=== PATIENT | female | born 1940 | race Caucasian/White ===

== ENCOUNTER → 2016-06-12 | Outpatient (CLI) | payer MEDICARE, BC ==
--- NOTE | 2016-06-12 10:33 | ECHOS ---
DATE OF SERVICE: 06/12/2016 AGE: 75Y SEX: F HT: 62 WT: 169 lbs. Protocol Richy: X Others: Stress Echo Stage: 1 Dur. of Exercise: 2:30 *Heart Rate Blood Pressure *Rest: 81 Rest: 105/61 * *Max. Achieved: 145 Maximum BP: 162/65 85% PMHR: 122 100% PMHR: 144 *METS: 3.6 INDICATIONS: Chest pain. MEDICATIONS: Omeprazole, levothyroxine, Advil. CLINICAL INFORMATION: Chest pain, shortness of breath, diabetes, palpitations, and family history of coronary artery disease. Resting ECG shows sinus rhythm, rate of 81 beats per minute, NH interval 0.16, QRS 0.08, normal ST-T Waves. Utilizing a standard Richy protocol, a symptom-limited treadmill test was performed. Patient exercised for total of only 2 minutes and 30 seconds, attained a peak heart of 145 beats per minute, which is approximately 100% of predicted maximal heart rate and with some J-point depressions without any anginal pain but complained of shortness of breath. Patient noted to have flat [address] segment depression in the inferolateral leads in the recovery. In view of very limited exercise, diabetic, age, clinical correlation suggested. May consider doing a trial of sublingual nitroglycerin to see whether symptoms improve. Baseline images show normal thickening and contractility. Postexercise image shows improved contractibility and thickening consistent with normal stress echocardiogram. IMPRESSION: 1. Normal stress echocardiogram. 2. Patient's exercise capacity is very limited, on walked on the treadmill for 2-1/2 minutes, stopped because of shortness of breath, noted to have [address] depression in the inferolateral leads in the recovery, which improved later. Clinical correlation is suggested.
== END | disposition home or self-care (01) ==
LOC: RADNMMAIN 08:55
PROVIDERS: ATTEND Internal Medicine Geriatric Medicine
DX: R94.31 Abnormal electrocardiogram [ECG] [EKG] (principal); R06.02 Shortness of breath; R07.9 Chest pain, unspecified
CPT/HCPCS: 93017; 93350

== ENCOUNTER → 2016-08-07 | Outpatient (CLI) | payer MEDICARE, BC ==
[2016-08-07 16:28] LABS: ALT 36 U/L (9-52); AST 21 U/L (14-36); Alkaline Phosphatase 99 U/L (38-126); Anion Gap 12 mmol/L; Blood Urea Nitrogen 14 mg/dL (7-17); Carbon Dioxide 24 mmol/L (22-30); Chloride 107 mmol/L (98-107); Glucose 95 mg/dL (74-99); Non-African American GFR(MDRD) >60 (>60 ml/min/1.73 sqM); Potassium 4.8 mmol/L (3.5-5.1); Sodium 143 mmol/L (137-145); Total Bilirubin 0.3 mg/dL (0.2-1.3)
--- NOTE | 2016-08-07 17:31 | CT ---
EXAMINATION TYPE: CT angio chest DATE OF EXAM: 08/07/2016 5:18 PM COMPARISON: NONE HISTORY: Shortness of breath on exertion CT DLP: 345.2 mGycm Automated exposure control for dose reduction was used. CONTRAST: CTA scan of the thorax is performed with IV Contrast, patient injected with 100 mL of Omnipaque 350, pulmonary embolism protocol. There are 3-D post processed images.. FINDINGS: The lungs are clear of infiltrate. There is no evidence of a pulmonary mass. There is a large hiatal hernia. Stomach is entirely within the hiatal hernia. Heart size is normal. There is no pericardial e ffusion. There is no pleural effusion. I see no filling defects in the pulmonary arteries. There is n o evidence of aortic aneurysm or dissection. There is no mediastinal adenopathy. There is a 1 cm righ t bronchial lymph node. The bony thorax is intact. IMPRESSION: LARGE HIATAL HERNIA WITH INTRATHORACIC STOMACH. NO EVIDENCE OF PULMONARY EMBOLISM.
== END | disposition home or self-care (01) ==
LOC: LABWHC1 16:00
PROVIDERS: ATTEND Internal Medicine Geriatric Medicine
DX: K44.9 Diaphragmatic hernia without obstruction or gangrene (principal); J90 Pleural effusion, not elsewhere classified; E78.5 Hyperlipidemia, unspecified; E03.9 Hypothyroidism, unspecified
CPT/HCPCS: 85379; 84439; 80053; 84443; 71275; 36415; Q9967

== ENCOUNTER 2016-09-10 18:45 | Observation (INO) | payer MEDICARE, BC ==
[2016-09-10] MEDS ORDERED: SODIUM CHLORIDE 0.9% 1,000 ML IV STA (19:41)
[2016-09-10] MEDS ORDERED: KETOROLAC 30 MG/ML 1 ML VIAL IVP STA ×2 (19:48→20:41)
[2016-09-10 20:00] LABS: Anisocytosis Slight; Basophils % (A) 1 %; CHCM 29.7; Eosinophils # (A) 0.1 k/uL (0-0.7); Eosinophils % (A) 2 %; HCT 34.3 % (34.0-46.0); HGB 10.4 gm/dL (11.4-16.0); Hypochromasia Marked; Luc # (Auto) 0.11; Luc % (Auto) 2; Lymphocytes % (A) 19 %; MCH 21.6 pg (25.0-35.0); MCHC 30.4 g/dL (31.0-37.0); Mean Platelet Volume 7.2; Microcytosis Marked; Monocytes # (A) 0.2 k/uL (0-1.0); Monocytes % (A) 4 %; Neutrophils # (A) 3.7 k/uL (1.3-7.7); Neutrophils % (A) 72 %; RBC 4.83 m/uL (3.80-5.40); RDW 17.6 % (11.5-15.5); WBC 5.2 k/uL (3.8-10.6)
[2016-09-10 20:05] LABS: Appearance,Urine Clear (Clear); Bilirubin,Urine Negative (Negative); Glucose,Urine (UA) Negative (Negative); Ketones,Urine Negative (Negative); Leukocyte Esterase,Urine Moderate (Negative); Mucus,Urine Rare /hpf; Nitrite,Urine Negative (Negative); Particle Count 1196; Protein,Urine Negative (Negative); RBC,Urine 1 /hpf (0-5); Specific Gravity,Urine 1.018 (1.001-1.035); Squamous Epithelial Cell,Urine <1 /hpf (0-4); UA Billing (MACRO vs. MICRO) MICRO; Urobilinogen,Urine <2.0 mg/dL (<2.0); WBC,Urine 2 /hpf (0-5)
[2016-09-10 20:06] LABS: Prothrombin Time 10.6 sec (9.0-12.0)
[2016-09-10 20:07] LABS: ALT 30 U/L (9-52); AST 23 U/L (14-36); Alkaline Phosphatase 85 U/L (38-126); Amylase <30 U/L (30-110); Anion Gap 10 mmol/L; Blood Urea Nitrogen 15 mg/dL (7-17); Calcium 9.8 mg/dL (8.4-10.2); Carbon Dioxide 28 mmol/L (22-30); Chloride 103 mmol/L (98-107); Glucose 97 mg/dL (74-99); Non-African American GFR(MDRD) >60 (>60 ml/min/1.73 sqM); Potassium 4.1 mmol/L (3.5-5.1); Sodium 141 mmol/L (137-145); Total Bilirubin 0.6 mg/dL (0.2-1.3)
[2016-09-10 20:17] LABS: Creatine Kinase 90 U/L (30-135); Partial Thromboplastin Time 21.7 sec (22.0-30.0)
--- NOTE | 2016-09-10 20:23 | XR ---
EXAMINATION TYPE: XR abdomen acute w cxr DATE OF EXAM: 09/10/2016 COMPARISON: NONE HISTORY: Pain TECHNIQUE: Single view of the chest and 2 views of the abdomen are submitted. FINDINGS: Single view of the chest fails demonstrate evidence for acute pulmonary disease. There is no evidence for pneumoperitoneum. Moderately sized fixed hiatal hernia. The bowel gas pattern is unremarkable as there is air throughou t nondilated small and large bowel. No sizeable air fluid levels.No mass effects are seen. Retained contrast within the colon. No unusual calcifications. IMPRESSION: 1. Fixed hiatal hernia.
[2016-09-10 20:30] LABS: Creatine Kinase MB 1.5 ng/mL (0.0-2.4); Troponin I <0.012 ng/mL (0.000-0.034)
--- NOTE | 2016-09-10 20:30 | ED ---
Abdominal Pain HPI - General Source: patient, RN notes reviewed Mode of arrival: ambulatory Limitations: no limitations - History of Present Illness MD Complaint: abdominal pain, other <Rasheed Bull - Last Filed: 09/10/16 20:46> <Maury Da Silva - Last Filed: 09/10/16 22:37> - General Chief Complaint: Abdominal Pain Stated Complaint: NECK AND BACK, SHOULDER BLADE FOLLOWING BARIUM Time Seen by Provider: 09/10/16 19:31 - History of Present Illness Initial Comments: This is a 75-year-old female history of hiatal hernia who is pending a repair of this who had a barium swallow this morning and then later a breakfast. She started developing some crampy lower abdominal pain and also has some radiation up to the left side of her neck and shoulder area. He states it has persisted intermittently since that time has had pain like this before but states it she also has a some shortness of breath with it. She states that the pain is about 5/10 in the abdomen crampy type pain and about 6/10 in the left shoulder area. There is some reproducibility with movement. Also with palpation. She has a cough fevers chills sweats. (Rasheed Bull) - Related Data Home Medications Medication Instructions Recorded Confirmed Levothyroxine Sodium [Synthroid] 100 mcg PO DAILY 03/30/15 09/10/16 Tio/D3/Mag11/Zinc/Data Center Architect/Aamir/Bor 1 tab PO DAILY 09/07/15 09/10/16 [Caltrate 600+D Plus Tablet] Glucosam/Hakan-Msm1/C/Aamir/Bosw 1 tab PO BID 09/07/15 09/10/16 [Glucosamine-Chondroitin Tablet] Multivit-Min/FA/Lycopen/Lutein 1 tab PO DAILY 09/07/15 09/10/16 [Centrum Silver Tablet] Omeprazole [PriLOSEC] 20 mg PO BID 09/07/15 09/10/16 Vit A/Vit C/Vit E/Zinc/Copper 1 cap PO BID 09/07/15 09/10/16 [ICAPS SOFTGEL] Allergies Allergy/AdvReac Type Severity Reaction Status Date / Time propoxyphene HCl Allergy Nausea Verified 09/10/16 19:23 [From Darvon] propoxyphene napsylate Allergy Nausea Verified 09/10/16 19:23 [From Darvocet-N] codeine AdvReac Nausea & Verified 09/10/16 19:23 Vomiting Review of Systems ROS Other: All systems not noted in ROS Statement are negative. <JorgitoRasheed - Last Filed: 09/10/16 20:46> ROS Other: All systems not noted in ROS Statement are negative. <aMury Da Silva - Last Filed: 09/10/16 22:37> ROS Statement: Those systems with pertinent positive or pertinent negative responses have been documented in the HPI. Past Medical History Past Medical History: GERD/Reflux, Osteoarthritis (OA), Thyroid Disorder Additional Past Medical History / Comment(s): hiatal hernia, HEART MURMUR, ROSACEA, LOW THYROID., 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 History of Any Multi-Drug Resistant Organisms: None Reported Past Surgical History: Adenoidectomy, Cholecystectomy, Tonsillectomy Additional Past Surgical History / Comment(s): ovarian cyst; bunionectomies. Past Anesthesia/Blood Transfusion Reactions: No Reported Reaction Past Psychological History: No Psychological Hx Reported Smoking Status: Former smoker Past Alcohol Use History: Occasional Past Drug Use History: None Reported - Past Family History Son(s) Additional Family Medical History / Comment(s): from brain tumor Brother(s) Family Medical History: Coronary Artery Disease (CAD), Diabetes Mellitus, Myocardial Infarction (OR) Additional Family Medical History / Comment(s): Patient has 2 brothers and one has coronary artery disease, first myocardial infarction at age 43 and is currently 77 years of age. Second brother has history of diabetes. Daughter(s) Family Medical History: No Reported History Additional Family Medical History / Comment(s): . Father Family Medical History: Cancer Additional Family Medical History / Comment(s): Father has history of lung cancer and coronary artery disease. . Mother Family Medical History: Cancer Additional Family Medical History / Comment(s): Mother at age 79 from ovarian cancer. <Rasheed Bull - Last Filed: 09/10/16 20:46> General Exam Limitations: no limitations General appearance: alert, in no apparent distress Head exam: Present: atraumatic, normocephalic, normal inspection Eye exam: Present: normal appearance, PERRL, EOMI. Absent: scleral icterus, conjunctival injection, periorbital swelling ENT exam: Present: normal exam, mucous membranes moist Neck exam: Present: normal inspection, tenderness (Tennis palpation of the left lateral neck musculature no step-off or crepitation no spinous process tenderness.), full ROM. Absent: meningismus, lymphadenopathy Respiratory exam: Present: normal lung sounds bilaterally. Absent: respiratory distress, wheezes, rales, rhonchi, stridor Cardiovascular Exam: Present: regular rate, normal rhythm, normal heart sounds. Absent: systolic murmur, diastolic murmur, rubs, gallop, clicks GI/Abdominal exam: Present: soft, normal bowel sounds. Absent: distended, tenderness, guarding, rebound, rigid Extremities exam: Present: normal inspection, full ROM, normal capillary refill. Absent: tenderness, pedal edema, joint swelling, calf tenderness Back exam: Present: normal inspection Neurological exam: Present: alert, oriented X3, CN II-XII intact Psychiatric exam: Present: normal affect, normal mood Skin exam: Present: warm, dry, intact, normal color. Absent: rash <Rasheed Bull - Last Filed: 09/10/16 20:46> <Maury Da Silva - Last Filed: 09/10/16 22:37> - General Exam Comments Initial Comments: This is a well-developed well-nourished awake alert oriented x 3 female (Rasheed Bull) Course <Rasheed Bull - Last Filed: 09/10/16 20:46> <Maury Da Silva - Last Filed: 09/10/16 22:37> Vital Signs 09/10/16 09/10/16 09/10/16 19:06 20:57 21:47 Temperature 98.8 F 98.1 F Pulse Rate 84 72 83 Respiratory 18 16 16 Rate Blood Pressure 146/65 166/72 159/69 O2 Sat by Pulse 99 96 Oximetry 09/10/16 22:08 Temperature Pulse Rate 71 Respiratory 16 Rate Blood Pressure 102/59 O2 Sat by Pulse 95 Oximetry - Reevaluation(s) Reevaluation #1: 09/10/16 20:46 The patient still has abdominal pain though the neck and chest discomfort has improved. Patient does have elevated d-dimer. Patient will be receiving a CAT scan of the chest to rule out PE. Case will be endorsed to Dr. Da Silva who will make the final disposition. (Rasheed Bull) Medical Decision Making - Lab Data Result diagrams: 09/10/16 19:24 09/10/16 19:24 - EKG Data -: EKG Interpreted by Nh EKG shows normal: sinus rhythm (Normal sinus rhythm with a rate of 86. Interval 134 QRS duration 70 daily since QTC of 368/440 evidence of PACs no acute ST-T wave changes.) <Rasheed Bull - Last Filed: 09/10/16 20:46> - Lab Data Result diagrams: 09/10/16 19:24 09/10/16 19:24 - Radiology Data Radiology results: report reviewed (CT Ming chest showed no evidence of pulmonary embolism.), image reviewed (Abdominal series with chest x-ray shows hiatal hernia.) <Maury Da Silva - Last Filed: 09/10/16 22:37> - Medical Decision Making Patient reexamined and was improved following nitroglycerin. Patient still has some mild epigastric discomfort and shoulder discomfort however chest discomfort has resolved. Patient states she had a recent stress test with some concerns on it. Patient is scheduled to have a heart catheterization done within the week. Case was discussed in detail with Dr. Turner, who will admit for Dr. Syed. She does request cardiac consult, heparin, and Nitropaste. Patient and family were updated. (Maury Da Silva) - Lab Data Lab Results 09/10/16 09/10/16 09/10/16 Range/Units 19:24 19:24 19:24 WBC 5.2 (3.8-10.6) k/uL RBC 4.83 (3.80-5.40) m/uL Hgb 10.4 L (11.4-16.0) gm/dL Hct 34.3 (34.0-46.0) % MCV 71.0 L (80.0-100.0) fL MCH 21.6 L (25.0-35.0) pg MCHC 30.4 L (31.0-37.0) g/dL RDW 17.6 H (11.5-15.5) % Plt Count 257 (150-450) k/uL Neutrophils % 72 % Lymphocytes % 19 % Monocytes % 4 % Eosinophils % 2 % Basophils % 1 % Neutrophils # 3.7 (1.3-7.7) k/uL Lymphocytes # 1.0 (1.0-4.8) k/uL Monocytes # 0.2 (0-1.0) k/uL Eosinophils # 0.1 (0-0.7) k/uL Basophils # 0.0 (0-0.2) k/uL Hypochromasia Marked Anisocytosis Slight Microcytosis Marked PT (9.0-12.0) sec INR (<1.2) APTT (22.0-30.0) sec D-Dimer (<0.60) mg/L FEU Sodium 141 (137-145) mmol/L Potassium 4.1 (3.5-5.1) mmol/L Chloride 103 (98-107) mmol/L Carbon Dioxide 28 (22-30) mmol/L Anion Gap 10 mmol/L BUN 15 (7-17) mg/dL Creatinine 0.86 (0.52-1.04) mg/dL Est GFR (MDRD) Af Amer >60 (>60 ml/min/1.73 sqM) Est GFR (MDRD) Non-Af >60 (>60 ml/min/1.73 sqM) Glucose 97 (74-99) mg/dL Calcium 9.8 (8.4-10.2) mg/dL Total Bilirubin 0.6 (0.2-1.3) mg/dL AST 23 (14-36) U/L ALT 30 (9-52) U/L Alkaline Phosphatase 85 (38-126) U/L Total Creatine Kinase 90 (30-135) U/L CK-MB (CK-2) 1.5 (0.0-2.4) ng/mL CK-MB (CK-2) Rel Index 1.7 Troponin I <0.012 (0.000-0.034) ng/mL Total Protein 7.0 (6.3-8.2) g/dL Albumin 4.4 (3.5-5.0) g/dL Amylase <30 L (30-110) U/L Lipase 126 (23-300) U/L Urine Color Urine Appearance (Clear) Urine pH (5.0-8.0) Ur Specific [place] (1.001-1.035) Urine Protein (Negative) Urine Glucose (UA) (Negative) Urine Ketones (Negative) Urine Blood (Negative) Urine Nitrite (Negative) Urine Bilirubin (Negative) Urine Urobilinogen (<2.0) mg/dL Ur Leukocyte Esterase (Negative) Urine RBC (0-5) /hpf Urine WBC (0-5) /hpf Ur Squamous Epith Cells (0-4) /hpf Urine Mucus (None) /hpf 09/10/16 09/10/16 09/10/16 Range/Units 19:24 19:24 19:45 WBC (3.8-10.6) k/uL RBC (3.80-5.40) m/uL Hgb (11.4-16.0) gm/dL Hct (34.0-46.0) % MCV (80.0-100.0) fL MCH (25.0-35.0) pg MCHC (31.0-37.0) g/dL RDW (11.5-15.5) % Plt Count (150-450) k/uL Neutrophils % % Lymphocytes % % Monocytes % % Eosinophils % % Basophils % % Neutrophils # (1.3-7.7) k/uL Lymphocytes # (1.0-4.8) k/uL Monocytes # (0-1.0) k/uL Eosinophils # (0-0.7) k/uL Basophils # (0-0.2) k/uL Hypochromasia Anisocytosis Microcytosis PT 10.6 (9.0-12.0) sec INR 1.0 (<1.2) APTT 21.7 L (22.0-30.0) sec D-Dimer 0.62 H (<0.60) mg/L FEU Sodium (137-145) mmol/L Potassium (3.5-5.1) mmol/L Chloride (98-107) mmol/L Carbon Dioxide (22-30) mmol/L Anion Gap mmol/L BUN (7-17) mg/dL Creatinine (0.52-1.04) mg/dL Est GFR (MDRD) Af Amer (>60 ml/min/1.73 sqM) Est GFR (MDRD) Non-Af (>60 ml/min/1.73 sqM) Glucose (74-99) mg/dL Calcium (8.4-10.2) mg/dL Total Bilirubin (0.2-1.3) mg/dL AST (14-36) U/L ALT (9-52) U/L Alkaline Phosphatase (38-126) U/L Total Creatine Kinase (30-135) U/L CK-MB (CK-2) (0.0-2.4) ng/mL CK-MB (CK-2) Rel Index Troponin I (0.000-0.034) ng/mL Total Protein (6.3-8.2) g/dL Albumin (3.5-5.0) g/dL Amylase (30-110) U/L Lipase (23-300) U/L Urine Color Yellow Urine Appearance Clear (Clear) Urine pH 7.0 (5.0-8.0) Ur Specific [place] 1.018 (1.001-1.035) Urine Protein Negative (Negative) Urine Glucose (UA) Negative (Negative) Urine Ketones Negative (Negative) Urine Blood Negative (Negative) Urine Nitrite Negative (Negative) Urine Bilirubin Negative (Negative) Urine Urobilinogen <2.0 (<2.0) mg/dL Ur Leukocyte Esterase Moderate H (Negative) Urine RBC 1 (0-5) /hpf Urine WBC 2 (0-5) /hpf Ur Squamous Epith Cells <1 (0-4) /hpf Urine Mucus Rare H (None) /hpf Disposition <Rasheed Bull - Last Filed: 09/10/16 20:46> Decision Time: 22:37 <Maury Da Silva - Last Filed: 09/10/16 22:37> Clinical Impression: Chest pain Disposition: ADMITTED IP TO THIS HOSP Referrals: Ugo Syed MD [Primary Care Provider] - 1-2 days
[2016-09-10] MEDS ORDERED: RX INFO: IV CONTRAST WAS GIVEN 1 EACH MISC MISCELLANE PRN (20:42)
--- NOTE | 2016-09-10 21:32 | CT ---
EXAMINATION TYPE: CT angio chest DATE OF EXAM: 09/10/2016 COMPARISON: NONE HISTORY: Left sided chest pain radiating to left shoulder. Barium swallow study earlier today. CT DLP: 342.10 mGycm CONTRAST: CT chest with contrast and 3D reconstruction with MIP imaging is performed with IV Contrast, patient injected with 58 mL of Omnipaque 350. Contrast-enhanced CT of the chest was performed through the course of the pulmonary arteries with danae g and mediastinal window settings submitted. 3D reconstruction with MIP imaging was also performed. PULMONARY ARTERIES: The pulmonary arteries and their major tributaries are patent. I do not see edna dence for sizable filling defect to suggest pulmonary embolic process. LUNGS: The lungs are clear and free of infiltrate. No evidence for atelectasis. No pulmonary nodule or mass is detected. No pleural effusion. MEDIASTINUM: Moderate fixed hiatal hernia is noted. Thoracic aorta is of normal caliber . The heart is not enlarged. No evidence for mediastinal mass. No mediastinal lymph nodes greater than 1cm. HILAR STRUCTURES: No evidence for mass. No hilar lymph nodes greater than 1 cm. UPPER ABDOMEN: No significant abnormality is seen. IMPRESSION: 1. No evidence for Pulmonary embolism at this time.
[2016-09-10] MEDS ORDERED: NITROGLYCERIN SL TABS 0.4 MG TAB SUBLINGUAL STA (21:35)
[2016-09-10] MEDS ORDERED: HEPARIN SODIUM,PORCINE 5,000 UNIT/ML 1 ML VIAL IV PRN (22:38)
[2016-09-10] MEDS ORDERED: NITROGLYCERIN SL TABS 0.4 MG TAB SUBLINGUAL PRN (22:38)
[2016-09-10] MEDS ORDERED: ASPIRIN 81 MG PO STA (22:38)
[2016-09-10] MEDS ORDERED: HEPARIN SODIUM,PORCINE 5,000 UNIT/ML 1 ML VIAL IV ONE (22:38)
[2016-09-10] MEDS ORDERED: HEPARIN SODIUM,PORCINE/D5W PMX 25,000 UNIT in DEXTROSE/WATER 1 500ML.BAG IV SCH (22:45)
[2016-09-11] MEDS: NITROGLYCERIN OINT 1 INCH/GM PACKET TOPICAL SCH ×4 (00:37→20:52)
[2016-09-11 03:10] LABS: Creatine Kinase 63 U/L (30-135)
[2016-09-11 03:25] LABS: Creatine Kinase MB 1.1 ng/mL (0.0-2.4); Troponin I <0.012 ng/mL (0.000-0.034)
[2016-09-11] MEDS: ACETAMINOPHEN TAB 325 MG TAB PO PRN ×2 (05:53→14:25)
[2016-09-11] MEDS ORDERED: LEVOTHYROXINE 100 MCG TAB PO SCH (06:30)
[2016-09-11 07:26] LABS: Mean Platelet Volume 7.7
[2016-09-11 07:39] LABS: Cholesterol 129 mg/dL (<200); HDL Cholesterol 47 mg/dL (40-60)
[2016-09-11 07:54] LABS: Creatine Kinase 57 U/L (30-135)
[2016-09-11 08:07] LABS: Troponin I <0.012 ng/mL (0.000-0.034)
--- NOTE | 2016-09-11 08:39 | P.CRDCN ---
History of Present Illness Consult date: 09/11/16 History of present illness: This is a 75-year-old female with history of hiatal hernia who was being evacuated for possible surgery. Patient had a stress echocardiogram recently as a preop evaluation. Apparently patient developed [address] depression on the stress test but a stress echo was reported as normal. Patient exercise capacity was also limited. Patient was subsequently seen by Dr. Gamez and was scheduled to have a cardiac catheterization next week for definitive diagnosis. Yesterday patient had a barium swallow test for assessment of her hiatal hernia. Following that patient developed some crampy abdominal pain and also pain in the left side of the neck and all the shoulder area and some chest discomfort. Patient was treated with sublingual nitroglycerin in the emergency room with partial relief of discomfort. After patient was started on heparin, patient apparently felt better. Since then patient has been stable. Her EKGs and cardiac enzymes are negative. As patient is already scheduled to have cath next week, I'm going to talk to Dr. Gamez to see if he wants to do cardiac catheterization either today or tomorrow. Review of Systems REVIEW OF SYSTEMS: CONSTITUTIONAL:. Patient is doing well. No complaints of fever or chills EYES: Denies diplopia, blurring of vision EARS, NOSE, MOUTH, THROAT: Denies headaches, denies sore throat. CARDIOVASCULAR: As per HPI RESPIRATORY: Denies shortness of breath, denies cough. GASTROINTESTINAL: As per HPI GENITOURINARY: Denies hematuria, denies infections. MUSKULOSKELETAL: Denies pain, denies swelling. Denies any cramps or claudication INTEGUMENTARY: Denies rash, denies eczema. NEUROLOGICAL: Denies focal weakness, or visual disturbance. Denies any dizziness or syncope PSYCHIATRIC: Denies anxiety, denies depression. HEMATOLOGIC/LYMPHATIC: Denies any bleeding, denies enlarged lymph nodes. Past Medical History Past Medical History: GERD/Reflux, Osteoarthritis (OA), Thyroid Disorder Additional Past Medical History / Comment(s): hiatal hernia, HEART MURMUR, ROSACEA, LOW THYROID., 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 History of Any Multi-Drug Resistant Organisms: None Reported Past Surgical History: Adenoidectomy, Cholecystectomy, Tonsillectomy Additional Past Surgical History / Comment(s): ovarian cyst; bunionectomies. Past Anesthesia/Blood Transfusion Reactions: No Reported Reaction Past Psychological History: No Psychological Hx Reported Smoking Status: Former smoker Past Alcohol Use History: Occasional Additional Past Alcohol Use History / Comment(s): qUIT SMOKING APPROX 20 YEARS AGO. SHE WAS A SOCIAL SMOKER . Past Drug Use History: None Reported - Past Family History Son(s) Additional Family Medical History / Comment(s): from brain tumor Brother(s) Family Medical History: Coronary Artery Disease (CAD), Diabetes Mellitus, Myocardial Infarction ([place]) Additional Family Medical History / Comment(s): Patient has 2 brothers and one has coronary artery disease, first myocardial infarction at age 43 and is currently 77 years of age. Second brother has history of diabetes. Daughter(s) Family Medical History: No Reported History Additional Family Medical History / Comment(s): . Father Family Medical History: Cancer Additional Family Medical History / Comment(s): Father has history of lung cancer and coronary artery disease. . Mother Family Medical History: Cancer Additional Family Medical History / Comment(s): Mother at age 79 from ovarian cancer. 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/Aamir/Bor 1 tab PO DAILY 09/07/15 09/10/16 History [Caltrate 600+D Plus Tablet] Glucosam/Hakan-Msm1/C/Aamir/Bosw 1 tab PO BID 09/07/15 09/10/16 History [Glucosamine-Chondroitin Tablet] Multivit-Min/FA/Lycopen/Lutein 1 tab PO DAILY 09/07/15 09/10/16 History [Centrum Silver Tablet] Omeprazole [PriLOSEC] 20 mg PO BID 09/07/15 09/10/16 History Vit A/Vit C/Vit E/Zinc/Copper 1 cap PO BID 09/07/15 09/10/16 History [ICAPS SOFTGEL] Allergies Allergy/AdvReac Type Severity Reaction Status Date / Time propoxyphene HCl Allergy Nausea Verified 09/10/16 23:58 [From Darvon] propoxyphene napsylate Allergy Nausea Verified 09/10/16 23:58 [From Darvocet-N] codeine AdvReac Nausea & Verified 09/10/16 23:58 Vomiting Physical Exam Vitals: Vital Signs Temp Pulse Pulse Resp BP BP Pulse Ox 09/11/16 07:49 97.9 F 66 16 119/61 97 09/11/16 04:00 98.1 F 68 18 129/57 97 09/11/16 03:52 18 09/11/16 00:00 97.6 F 78 18 144/60 97 09/10/16 23:52 16 09/10/16 23:01 97.9 F 83 16 147/66 96 09/10/16 22:08 71 16 102/59 95 09/10/16 21:47 83 16 159/69 09/10/16 20:57 98.1 F 72 16 166/72 96 09/10/16 19:06 98.8 F 84 18 146/65 99 Intake and Output 09/10/16 09/11/16 09/11/16 22:59 06:59 14:59 Other: Voiding Method Toilet Weight 77.111 kg 77.5 kg GENERAL EXAM: Patient is alert and oriented and doesn't appear to be in any acute distress HEENT: Normocephalic. Normal reaction of pupils, equal size, normal range of extraocular motion. No erythema or exudates in the throat. NECK: No masses, no nuchal rigidity. CHEST: No chest wall deformity. LUNGS: Equal air entry with no crackles or wheeze. HEART: S1 and S2 normal with no audible mumurs or gallops. Regular rhythm, femorals equal on both sides.. ABDOMEN: No hepatosplenomegaly, normal bowel sounds, no guarding or rigidity. SKIN: No rashes CENTRAL NERVOUS SYSTEM: No focal deficits. EXTREMITIES: No cyanosis, clubbing or edema. Results 09/11/16 06:39 09/10/16 19:24 Cardiac Enzymes 09/10/16 09/10/16 09/11/16 Range/Units 19:24 19:24 01:45 AST 23 (14-36) U/L CK-MB (CK-2) 1.5 1.1 (0.0-2.4) ng/mL Troponin I <0.012 <0.012 (0.000-0.034) ng/mL 09/11/16 Range/Units 06:39 AST (14-36) U/L CK-MB (CK-2) 1.0 (0.0-2.4) ng/mL Troponin I <0.012 (0.000-0.034) ng/mL Coagulation 09/10/16 09/11/16 Range/Units 19:24 06:39 PT 10.6 (9.0-12.0) sec APTT 21.7 L 46.8 H (22.0-30.0) sec Lipids 09/11/16 Range/Units 06:39 Triglycerides 80 (<150) mg/dL Cholesterol 129 (<200) mg/dL HDL Cholesterol 47 (40-60) mg/dL CBC 09/10/16 09/11/16 Range/Units 19:24 06:39 WBC 5.2 (3.8-10.6) k/uL RBC 4.83 (3.80-5.40) m/uL Hgb 10.4 L (11.4-16.0) gm/dL Hct 34.3 (34.0-46.0) % Plt Count 257 222 (150-450) k/uL Comprehensive Metabolic Panel 09/10/16 Range/Units 19:24 Sodium 141 (137-145) mmol/L Potassium 4.1 (3.5-5.1) mmol/L Chloride 103 (98-107) mmol/L Carbon Dioxide 28 (22-30) mmol/L BUN 15 (7-17) mg/dL Creatinine 0.86 (0.52-1.04) mg/dL Glucose 97 (74-99) mg/dL Calcium 9.8 (8.4-10.2) mg/dL AST 23 (14-36) U/L ALT 30 (9-52) U/L Alkaline Phosphatase 85 (38-126) U/L Total Protein 7.0 (6.3-8.2) g/dL Albumin 4.4 (3.5-5.0) g/dL Current Medications Generic Name Dose Route Start Last Admin Trade Name Freq PRN Reason Stop Dose Admin Acetaminophen 650 mg 09/11/16 05:42 09/11/16 05:53 Tylenol Tab PO 650 mg Q4HR PRN Administration Fever and/ or Pain Aspirin 325 mg 09/11/16 09:00 Aspirin PO DAILY LINDSAY Heparin Sodium (Porcine) 0 unit 09/10/16 22:38 Heparin IV Q6HR PRN Low PTT Protocol Heparin Sodium/Dextrose 25,000 500 mls @ 18.5 mls/hr 09/10/16 22:45 09/10/16 22:56 unit/ IV Solution IV 12 units/kg/hr .Q24H LINDSAY 18.5 mls/hr Protocol Administration 12 UNITS/KG/HR Levothyroxine Sodium 100 mcg 09/11/16 06:30 09/11/16 05:40 Synthroid PO 100 mcg 0630 LINDSAY Administration Miscellaneous Information 1 each 09/10/16 20:42 09/10/16 20:59 Rx Info: Iv Contrast Was Given MISCELLANE 09/12/16 20:42 1 each DAILY PRN Administration Per Protocol Nitroglycerin 1 inch 09/11/16 00:00 09/11/16 05:37 Nitro-Bid Oint TOPICAL Not Given Q6HR LINDSAY Nitroglycerin 0.4 mg 09/10/16 22:38 Nitrostat SUBLINGUAL Q5M PRN Chest Pain Pantoprazole Sodium 40 mg 09/11/16 07:30 Protonix PO AC-BID LINDSAY Sodium Chloride 10 ml 09/11/16 09:00 Saline Flush IV BID LINDSAY Intake and Output 09/10/16 09/11/16 09/11/16 22:59 06:59 14:59 Other: Voiding Method Toilet Weight 77.111 kg 77.5 kg 09/11/16 06:39 09/10/16 19:24 EKG Interpretations (text) Sinus rhythm Assessment and Plan (1) Abdominal pain Status: Acute (2) Chest pain Status: Acute (3) Positive cardiac stress test Status: Acute (4) Hiatal hernia Status: Acute Plan: Patient and is admitted with abdominal cramps, shoulder pain and some chest discomfort. EKGs and cardiac enzymes are negative. Her symptoms appear to be atypical. However, patient had a positive EKG changes on the stress test and is scheduled to have a cardiac cath next week. I will discuss with Dr. Gamez. He wants to do a cardiac catheterization either today or tomorrow.
[2016-09-11] MEDS ORDERED: ASPIRIN 325 MG TAB PO SCH (09:00)
[2016-09-11] MEDS: PANTOPRAZOLE 40 MG TABLET PO SCH ×2 (11:13→20:52)
[2016-09-11] MEDS ORDERED: SODIUM CHLORIDE 0.9% 1,000 ML IV ONE (11:41)
[2016-09-11] MEDS ORDERED: HEPARIN SODIUM 1,000 UN/ML (10ML VL) ONE (11:46)
[2016-09-11] MEDS ORDERED: LIDOCAINE 2% INJ 20 MG/ML (20 ML MDV) ONE (11:46)
[2016-09-11] MEDS ORDERED: VERAPAMIL 2.5 MG/ML 2 ML AMP ONE (11:46)
[2016-09-11] MEDS ORDERED: MIDAZOLAM 2 MG/2 ML VIAL ONE (11:47)
[2016-09-11] MEDS ORDERED: MIDAZOLAM 2 MG/2 ML VIAL IVP ONE (11:52)
[2016-09-11] MEDS ORDERED: LIDOCAINE 2% INJ 20 MG/ML SQ ONE (11:55)
[2016-09-11] MEDS: VERAPAMIL SYRINGE (5 MG/10 ML) INTRAARTER ONE ×2 (11:56→12:11)
[2016-09-11] MEDS ORDERED: HEPARIN SODIUM 1,000 UN/ML (10ML VL) IV ONE (11:56)
[2016-09-11] MEDS ORDERED: RX INFO: IV CONTRAST WAS GIVEN 1 EACH MISC MISCELLANE PRN (12:12)
[2016-09-11] MEDS ORDERED: IOHEXOL 350 MG/ML 100 ML BOTTLE INJ ONE (12:12)
[2016-09-11] MEDS ORDERED: SODIUM CHLORIDE 0.9% 1,000 ML IV SCH (12:15)
--- NOTE | 2016-09-11 12:29 | P.PCN ---
Date of Procedure: 09/11/16 Preoperative Diagnosis: Postoperative Diagnosis: Procedure(s) Performed: Implants: Indications for Procedure: Operative Findings: CARDIAC CATHETERIZATION PERFORMING PHYSICIAN: Dialn Wang MD, VI PREPROCEDURE DIAGNOSES: Intermittent episodes of chest discomfort Abnormal stress echocardiogram POSTPROCEDURE DIAGNOSES: Normal coronary angiogram PROCEDURE PERFORMED: 1. Selective right and left coronary angiogram APPROACH: Right radial artery PROCEDURE DESCRIPTION: After obtaining an informed consent and explaining the procedure benefits, risks , and complications, the patient was brought to cardiac microbiology lab technician. Local anesthesia was performed using lidocaine subcutaneously. The right radial artery was cannulated using Seldinger technique, the guidewire passed easily, following that we advanced a 6-[place] sheath dilator assembly, the wire and dilator were removed and sheath was flushed. Following that, 2 mg of verapamil along with 3000 unit heparin were given. Selective right and left coronary angiogram using a 6-[place] JR4 and JL 3.5 catheters. The procedure was completed there was no complication. SELECTIVE CORONARY ANGIOGRAM: The right coronary artery: Is a medium caliber vessel and nondominant vessel. Its angiographically normal. Left main: Is angiographically normal. The left circumflex: It is a large caliber vessel and a dominant vessel. The proximal left circumflex is angiographically normal. The mid left circumflex is normal and gives rises into a large OM branch which seems to be angiographically normal. The left circumflex distally is normal and bifurcates into PDA and PLV branches both are angiographically normal. The left anterior descending artery: The proximal left anterior descending artery is angiographically normal and gives rises into the large first diagonal branch which seems to be angiographically normal. The mid and distal LAD are angiographically normal. POSTPROCEDURE MANAGEMENT: Medical treatment Description of Procedure:
[2016-09-11 12:54] VITALS: RESP 16; TEMP 97.9
--- NOTE | 2016-09-11 14:53 | P.HPIM ---
History of Present Illness H&P Date: 09/11/16 Chief Complaint: left chest wall left shoulder pain This will serve both an H&P and discharge summary This is a 74-year-old female. Her primary care physician is She has a past medical history for hypothyroidism, hiatal hernia. she is not process off undergoing hiatal hernia surgery by Dr. Coleman at [facility], and in the process off the workup of this chest discomfort, patient had underwent stress echo stress test May 2016, reports was not completely satisfactory, and PCP has recommended that she would undergo a heart cath underlying, patient was subsequently seen in the emergency room this morning secondary to epigastric pain that radiated jaded to the left shoulder and left neck, patient was subsequently admitted to evaluate coronary vasculature and was seen consultation by cardiology. Patient underwentheart cath early this morning. Troponins are all negative 09/11/2016:Procedure note from Dr. Wang for heart catheterization through a right radial artery approach shows selective right and left coronary angiogram shows normal coronary angiogram Review of Systems Constitutional: Reports as per HPI, Denies anorexia, Denies chills, Denies chronic headaches, Denies chronic pain, Denies daytime sleepiness, Denies fatigue, Denies fever, Denies lethargy, Denies malaise, Denies night sweats, Denies poor appetite, Denies sweats, Denies weakness, Denies weight gain, Denies weight loss Ears, nose, mouth and throat: Reports as per HPI, Denies ant. neck pain, Denies bleeding gums, Denies dental pain, Denies dysphagia, Denies epistaxis, Denies headache, Denies hoarseness, Denies mouth pain, Denies nasal congestion, Denies nasal discharge, Denies neck fullness/pressure, Denies neck lump, Denies nose pain, Denies odynophagia, Denies post-nasal drip, Denies sinus pain, Denies sinus pressure, Denies swelling in mouth, Denies swelling in throat, Denies sore throat, Denies vertigo, Denies voice changes Cardiovascular: Reports as per HPI, Reports chest pain, Denies claudication, Denies decreased exercise tolerance, Denies dyspnea on exertion, Denies edema, Denies high blood pressure, Denies irregular heart beat, Denies leg edema, Denies lightheadedness, Denies orthopnea, Denies palpitations, Denies paroxysmal nocturnal dyspnea, Denies phlebitis, Denies rapid heart beat, Denies shortness of breath, Denies syncope Respiratory: Reports as per HPI Gastrointestinal: Reports as per HPI, Reports dyspepsia, Denies abdominal pain, Denies belching, Denies BRBPR, Denies change in bowel habits, Denies coffee ground emesis, Denies constipation, Denies diarrhea, Denies early satiety, Denies excessive gas, Denies heartburn, Denies hematemesis, Denies hematochezia , Denies indigestion, Denies jaundice, Denies lactose intolerance, Denies loss of appetite, Denies melena, Denies nausea, Denies vomiting Genitourinary: Reports as per HPI, Denies abnormal vaginal bleeding, Denies decreased libido, Denies difficulty conceiving, Denies difficulty voiding, Denies dysmenorrhea, Denies dyspareunia, Denies dysuria, Denies flank pain, Denies genital sores, Denies hematuria, Denies hot flashes, Denies incomplete emptying, Denies kidney stones, Denies menorrhagia, Denies mixed incontinence, Denies nocturia, Denies pelvic pain, Denies post void dribbling, Denies , Denies prolapse symptoms, Denies stress incontinence, Denies urge incontinence , Denies urgency, Denies urinary frequency, Denies vaginal discharge, Denies vaginal dryness, Denies vaginal itching, Denies vaginal odor Menstruation: Reports as per HPI, Denies amenorrhea, Denies amenorrhea on BC, Denies currently menstrual, Denies cycle < 21 days, Denies cycle > 35 days, Denies cycle variable, Denies menses 1-7 days, Denies menses 8 or > days, Denies menses variable, Denies period heavy, Denies period light, Denies period normal, Denies period spotting, Denies post hysterectomy, Denies postmenopausal , Denies premenarcheal Musculoskeletal: Reports as per HPI, Denies arm numbness/tingling, Denies atrophy, Denies fractures, Denies frequent falls, Denies gait dysfunction, Denies hot joints, Denies leg numbness/tingling, Denies limitation of motion, Denies loss of height, Denies low back pain, Denies morning stiffness, Denies muscle cramps, Denies muscle weakness, Denies myalgias, Denies neck pain, Denies neck stiffness, Denies prior amputations, Denies redness of joints, Denies shooting arm pain, Denies shooting leg pain Integumentary: Reports as per HPI, Denies acne, Denies boils, Denies brittle nails, Denies change in hair/nails, Denies color changes, Denies darkening of skin, Denies depigmentation, Denies dryness, Denies foot/leg ulcers, Denies growths, Denies hirsutism, Denies lesions, Denies onychomycosis, Denies pruritus , Denies rash, Denies sores, Denies striae, Denies unusual bruising, Denies wounds Neurological: Reports as per HPI, Denies aphasia, Denies ataxia, Denies balance difficulties, Denies burning pain, Denies change in mentation, Denies change in smell/taste, Denies change in speech, Denies confusion, Denies convulsions, Denies double vision, Denies gait dysfunction, Denies head injury, Denies headaches, Denies hearing difficulties, Denies lack of coordination, Denies loss of vision, Denies memory loss, Denies migraines, Denies motor disturbance, Denies numbness, Denies paralysis, Denies paresthesias, Denies seizures, Denies sensory deficit, Denies spasticity, Denies syncope, Denies tic, Denies tingling , Denies transient paralysis, Denies tremors, Denies vertigo, Denies weakness, Denies visual changes Psychiatric: Reports as per HPI, Denies anhedonia, Denies anxiety, Denies anxiety attacks, Denies change in appetite, Denies change in libido, Denies change in sleep habits, Denies confusion, Denies depression, Denies difficulty concentrating, Denies disorientation, Denies hallucinations, Denies hopelessness , Denies hypersomnia, Denies insomnia, Denies irritability, Denies memory loss, Denies mood swings, Denies paranoia, Denies sadness/tearfulness, Denies sleep disturbances, Denies suicidal ideation Endocrine: Reports as per HPI, Denies cold intolerance, Denies deepening of the voice, Denies excessive sweating, Denies excessive thirst, Denies fatigue, Denies flushing, Denies heat intolerance, Denies high blood sugars, Denies increase in ring/shoe/hat size, Denies low blood sugars, Denies nocturia, Denies palpitations, Denies polydipsia, Denies polyphagia, Denies polyuria, Denies proptosis, Denies recent glucocorticoid use, Denies thyroid mass, Denies weight change Hematologic/Lymphatic: Reports as per HPI, Denies easy bleeding, Denies easy bruising, Denies lymphadenopathy, Denies lymphedema, Denies thrombophilia Allergic/Immunologic: Reports as per HPI Past Medical History Past Medical History: GERD/Reflux, Osteoarthritis (OA), Thyroid Disorder Additional Past Medical History / Comment(s): hiatal hernia, HEART MURMUR, ROSACEA, LOW THYROID., 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 History of Any Multi-Drug Resistant Organisms: None Reported Past Surgical History: Adenoidectomy, Cholecystectomy, Tonsillectomy Additional Past Surgical History / Comment(s): ovarian cyst; bunionectomies. Past Anesthesia/Blood Transfusion Reactions: No Reported Reaction Past Psychological History: No Psychological Hx Reported Smoking Status: Former smoker Past Alcohol Use History: Occasional Additional Past Alcohol Use History / Comment(s): qUIT SMOKING APPROX 20 YEARS AGO. SHE WAS A SOCIAL SMOKER . Past Drug Use History: None Reported - Past Family History Son(s) Additional Family Medical History / Comment(s): from brain tumor Brother(s) Family Medical History: Coronary Artery Disease (CAD), Diabetes Mellitus, Myocardial Infarction (ND) Additional Family Medical History / Comment(s): Patient has 2 brothers and one has coronary artery disease, first myocardial infarction at age 43 and is currently 77 years of age. Second brother has history of diabetes. Daughter(s) Family Medical History: No Reported History Additional Family Medical History / Comment(s): . Father Family Medical History: Cancer (brain cancer) Additional Family Medical History / Comment(s): Father has history of lung cancer and coronary artery disease. . Mother Family Medical History: Cancer Additional Family Medical History / Comment(s): Mother at age 79 from ovarian cancer. Medications and Allergies Home Medications Medication Instructions Recorded Confirmed Type Levothyroxine Sodium [Synthroid] 100 mcg PO DAILY 03/30/15 09/10/16 History Tio/D3/Mag11/Zinc/Cannery Tender Engineer/Aamir/Bor 1 tab PO DAILY 09/07/15 09/10/16 History [Caltrate 600+D Plus Tablet] Glucosam/Hakan-Msm1/C/Aamir/Bosw 1 tab PO BID 09/07/15 09/10/16 History [Glucosamine-Chondroitin Tablet] Multivit-Min/FA/Lycopen/Lutein 1 tab PO DAILY 09/07/15 09/10/16 History [Centrum Silver Tablet] Omeprazole [PriLOSEC] 20 mg PO BID 09/07/15 09/10/16 History Vit A/Vit C/Vit E/Zinc/Copper 1 cap PO BID 09/07/15 09/10/16 History [ICAPS SOFTGEL] Allergies Allergy/AdvReac Type Severity Reaction Status Date / Time propoxyphene HCl Allergy Nausea Verified 09/10/16 23:58 [From Darvon] propoxyphene napsylate Allergy Nausea Verified 09/10/16 23:58 [From Darvocet-N] codeine AdvReac Nausea & Verified 09/10/16 23:58 Vomiting Physical Exam Vitals: Vital Signs Temp Pulse Pulse Pulse Resp BP BP 09/11/16 12:00 97.8 F 85 18 164/79 09/11/16 07:49 97.9 F 66 16 119/61 09/11/16 04:00 98.1 F 68 18 129/57 09/11/16 03:52 18 09/11/16 00:00 97.6 F 78 18 144/60 09/10/16 23:52 16 09/10/16 23:01 97.9 F 83 16 147/66 09/10/16 22:08 71 16 102/59 09/10/16 21:47 83 16 159/69 09/10/16 20:57 98.1 F 72 16 166/72 09/10/16 19:06 98.8 F 84 18 146/65 Pulse Ox 09/11/16 12:00 98 09/11/16 07:49 97 09/11/16 04:00 97 09/11/16 03:52 09/11/16 00:00 97 09/10/16 23:52 09/10/16 23:01 96 09/10/16 22:08 95 09/10/16 21:47 09/10/16 20:57 96 09/10/16 19:06 99 Intake and Output 09/10/16 09/11/1617 22:59 06:59 14:59 Intake Total 50 Balance 50 Intake: IV 50 Other: Voiding Method Toilet Weight 77.111 kg 77.5 kg - Constitutional General appearance: cooperative, no acute distress - EENT Eyes: anicteric sclerae, EOMI, PERRLA, dentition normal, normal appearance - Neck Neck: no lymphadenopathy, normal ROM, no other, no rigidity, no stridor, no thyromegaly - Respiratory Respiratory: bilateral: CTA, negative: diminished, dullness, rales, rhonchi - Cardiovascular Rhythm: regular Heart sounds: normal: S1, S2 Abnormal Heart Sounds: no systolic murmur, no diastolic murmur, no rub, no S3 Gallop, no S4 Gallop, no click, no other - Gastrointestinal General gastrointestinal: normal bowel sounds, soft - Integumentary Integumentary: normal, normal turgor - Neurologic Neurologic: CNII-XII intact - Musculoskeletal Musculoskeletal: gait normal - Psychiatric Psychiatric: A&O x's 3, appropriate affect, intact judgment & insight Results CBC & Chem 7: 09/11/16 06:39 09/10/16 19:24 Labs: Abnormal Lab Results - Last 24 Hours (Table) 09/10/16 09/10/16 09/10/16 Range/Units 19:24 19:24 19:24 Hgb 10.4 L (11.4-16.0) gm/dL MCV 71.0 L (80.0-100.0) fL MCH 21.6 L (25.0-35.0) pg MCHC 30.4 L (31.0-37.0) g/dL RDW 17.6 H (11.5-15.5) % APTT 21.7 L (22.0-30.0) sec D-Dimer (<0.60) mg/L FEU Amylase <30 L (30-110) U/L Ur Leukocyte Esterase (Negative) Urine Mucus (None) /hpf 09/10/16 09/10/16 09/11/16 Range/Units 19:24 19:45 06:39 Hgb (11.4-16.0) gm/dL MCV (80.0-100.0) fL MCH (25.0-35.0) pg MCHC (31.0-37.0) g/dL RDW (11.5-15.5) % APTT 46.8 H (22.0-30.0) sec D-Dimer 0.62 H (<0.60) mg/L FEU Amylase (30-110) U/L Ur Leukocyte Esterase Moderate H (Negative) Urine Mucus Rare H (None) /hpf Laboratory Results WBC 5.2 k/uL (3.8-10.6) 09/10/16 19:24 RBC 4.83 m/uL (3.80-5.40) 09/10/16 19:24 Hgb 10.4 gm/dL (11.4-16.0) L 09/10/16 19:24 Hct 34.3 % (34.0-46.0) 09/10/16 19:24 MCV 71.0 fL (80.0-100.0) L 09/10/16 19:24 MCH 21.6 pg (25.0-35.0) L 09/10/16 19:24 MCHC 30.4 g/dL (31.0-37.0) L 09/10/16 19:24 RDW 17.6 % (11.5-15.5) H 09/10/16 19:24 Plt Count 222 k/uL (150-450) 09/11/16 06:39 Neutrophils % 72 % 09/10/16 19:24 Lymphocytes % 19 % 09/10/16 19:24 Monocytes % 4 % 09/10/16 19:24 Eosinophils % 2 % 09/10/16 19:24 Basophils % 1 % 09/10/16 19:24 Neutrophils # 3.7 k/uL (1.3-7.7) 09/10/16 19:24 Lymphocytes # 1.0 k/uL (1.0-4.8) 09/10/16 19:24 Monocytes # 0.2 k/uL (0-1.0) 09/10/16 19:24 Eosinophils # 0.1 k/uL (0-0.7) 09/10/16 19:24 Basophils # 0.0 k/uL (0-0.2) 09/10/16 19:24 Hypochromasia Marked 09/10/16 19:24 Anisocytosis Slight 09/10/16 19:24 Microcytosis Marked 09/10/16 19:24 PT 10.6 sec (9.0-12.0) 09/10/16 19:24 INR 1.0 (<1.2) 09/10/16 19:24 APTT 46.8 sec (22.0-30.0) H 09/11/16 06:39 D-Dimer 0.62 mg/L FEU (<0.60) H 09/10/16 19:24 Sodium 141 mmol/L (137-145) 09/10/16 19:24 Potassium 4.1 mmol/L (3.5-5.1) 09/10/16 19:24 Chloride 103 mmol/L (98-107) 09/10/16 19:24 Carbon Dioxide 28 mmol/L (22-30) 09/10/16 19:24 Anion Gap 10 mmol/L 09/10/16 19:24 BUN 15 mg/dL (7-17) 09/10/16 19:24 Creatinine 0.86 mg/dL (0.52-1.04) 09/10/16 19:24 Est GFR (MDRD) Af Amer >60 (>60 ml/min/1.73 sqM) 09/10/16 19:24 Est GFR (MDRD) Non-Af >60 (>60 ml/min/1.73 sqM) 09/10/16 19:24 Glucose 97 mg/dL (74-99) 09/10/16 19:24 Calcium 9.8 mg/dL (8.4-10.2) 09/10/16 19:24 Total Bilirubin 0.6 mg/dL (0.2-1.3) 09/10/16 19:24 AST 23 U/L (14-36) 09/10/16 19:24 ALT 30 U/L (9-52) 09/10/16 19:24 Alkaline Phosphatase 85 U/L (38-126) 09/10/16 19:24 Total Creatine Kinase 57 U/L (30-135) 09/11/16 06:39 CK-MB (CK-2) 1.0 ng/mL (0.0-2.4) 09/11/16 06:39 CK-MB (CK-2) Rel Index 1.8 09/11/16 06:39 Troponin I <0.012 ng/mL (0.000-0.034) 09/11/16 06:39 Total Protein 7.0 g/dL (6.3-8.2) 09/10/16 19:24 Albumin 4.4 g/dL (3.5-5.0) 09/10/16 19:24 Triglycerides 80 mg/dL (<150) 09/11/16 06:39 Cholesterol 129 mg/dL (<200) 09/11/16 06:39 LDL Cholesterol, Calc 66 mg/dL (0-99) 09/11/16 06:39 HDL Cholesterol 47 mg/dL (40-60) 09/11/16 06:39 Amylase <30 U/L (30-110) L 09/10/16 19:24 Lipase 126 U/L (23-300) 09/10/16 19:24 Urine Color Yellow 09/10/16 19:45 Urine Appearance Clear (Clear) 09/10/16 19:45 Urine pH 7.0 (5.0-8.0) 09/10/16 19:45 Ur Specific [place] 1.018 (1.001-1.035) 09/10/16 19:45 Urine Protein Negative (Negative) 09/10/16 19:45 Urine Glucose (UA) Negative (Negative) 09/10/16 19:45 Urine Ketones Negative (Negative) 09/10/16 19:45 Urine Blood Negative (Negative) 09/10/16 19:45 Urine Nitrite Negative (Negative) 09/10/16 19:45 Urine Bilirubin Negative (Negative) 09/10/16 19:45 Urine Urobilinogen <2.0 mg/dL (<2.0) 09/10/16 19:45 Ur Leukocyte Esterase Moderate (Negative) H 09/10/16 19:45 Urine RBC 1 /hpf (0-5) 09/10/16 19:45 Urine WBC 2 /hpf (0-5) 09/10/16 19:45 Ur Squamous Epith Cells <1 /hpf (0-4) 09/10/16 19:45 Urine Mucus Rare /hpf (None) H 09/10/16 19:45 Thrombosis Risk Factor Assmnt - DVT/VTE Prophylaxis DVT/VTE Prophylaxis: Low risk, early ambulation encouraged - Choose All That Apply Each Factor Represents 1 point: Obesity (BMI >25), Varicose veins Other Risk Factors: Yes Each Risk Factor Represents 3 Points: Age 75 years or older Other congenital or acquired thrombophilia - If yes, enter type in comment: No Thrombosis Risk Factor Assessment Total Risk Factor Score: 5 Thrombosis Risk Factor Assessment Level: High Risk Assessment and Plan Plan: 1. Atypical chest pain with known history of GERD, suboptimal stress echo performed recently, underwent cardiac consultation and workup during this admission to include a selective right and left coronary angiogram performed on the right radial at [address] Wang on 09/11/2016 which shows a normal coronary angiogram.Patient would remain on coated aspirin 81 mg for secondary prophylaxis however she is due to have laparoscopic Candace fundoplication in September, aspirin will be held for that particular reason 2. GERD patient is to undergo hiatal hernia surgery onSeptember [address] Gallo on maintenance omeprazole 20 mg twice a day no changes made 3. Intermittent elevation of blood pressure this was worked up during her last admission in May 2016, patient remains to be normotensive no blood pressure medications needed 4. Prior history of cholecystectomy 5. Hypothyroidismand on levothyroxine 6.osteoarthritis on glucosamine patient is not on any NSAIDs 7. DVT and GI prophylaxis Discharge condition stable and improved Discharge Medication List Levothyroxine Sodium [Synthroid] 100 mcg PO DAILY 03/30/15 [History] Tio/D3/Mag11/Zinc/Cannery Tender Engineer/Aamir/Bor [Caltrate 600+D Plus Tablet] 1 tab PO DAILY 09/06 [History] Glucosam/Hakan-Msm1/C/Aamir/Bosw [Glucosamine-Chondroitin Tablet] 1 tab PO BID [History] Multivit-Min/FA/Lycopen/Lutein [Centrum Silver Tablet] 1 tab PO DAILY 09/07/15 [ History] Omeprazole [PriLOSEC] 20 mg PO BID 09/07/15 [History] Vit A/Vit C/Vit E/Zinc/Copper [ICAPS SOFTGEL] 1 cap PO BID 09/07/15 [History]
[2016-09-11 15:15] VITALS: BP 139/54; PULSE 78
== END 2016-09-11 18:00 | disposition home or self-care (01) ==
LOC: EC 18:45 → 3OBS 22:38
PROVIDERS: ADMIT Family Medicine; ATTEND Family Medicine
DX: R07.89 Other chest pain (principal); M25.512 Pain in left shoulder; R94.39 Abnormal result of other cardiovascular function study; R79.89 Other specified abnormal findings of blood chemistry; K44.9 Diaphragmatic hernia without obstruction or gangrene; K21.9 Gastro-esophageal reflux disease without esophagitis; E03.9 Hypothyroidism, unspecified; M19.90 Unspecified osteoarthritis, unspecified site; Z79.899 Other long term (current) drug therapy; Z88.5 Allergy status to narcotic agent; Z87.891 Personal history of nicotine dependence; Z90.49 Acquired absence of other specified parts of digestive tract
CPT/HCPCS: 99285 ×2; 96375 ×2; 96365 ×2; 96366 ×3; 96376 ×2; 82075; 36415; 93005; 93454; 85379; 80061; 80053; 82150; 82550 ×2; 82553 ×2; 83690; 84484 ×2; 85025; 85049; 85610; 85730 ×2; 81001; 74022; 71275; G0378 ×2; C1769 ×3; C1894; J2001; J2250; J1644 ×3; Q9967 ×2; J1885; 74246

== ENCOUNTER → 2016-09-10 | Outpatient (CLI) | payer MEDICARE, BC ==
--- NOTE | 2016-09-10 11:34 | FL ---
EXAMINATION TYPE: FL UGI air w esophagus DATE OF EXAM: 09/10/2016 COMPARISON: NONE HISTORY: Paraesophageal hernia TECHNIQUE: A single contrast UGI study is performed. FINDINGS: Tub Tender image of the abdomen shows no gross abnormality. Approximately 80% of the stomach is intrathoracic in location consistent with large fixed paraesophag eal hiatal hernia. The gastric pylorus and antrum are within the abdomen. There is no evidence for a volvulus. No masses or filling defects are identified. There is no evidence for reflux. The duodenal bulb, sweep, and proximal small bowel loops are unremarkable. IMPRESSION: 1. Large paraesophageal hiatal hernia as discussed.
== END | disposition home or self-care (01) ==
LOC: RADFLWHC 10:14
PROVIDERS: ATTEND Thoracic Surgery (Cardiothoracic Vascular Surgery)
DX: K44.9 Diaphragmatic hernia without obstruction or gangrene (principal)
CPT/HCPCS: 74246

== ENCOUNTER → 2017-04-21 | Outpatient (CLI) | payer MEDICARE, BC ==
[2017-04-21 17:23] LABS: Anisocytosis Slight; HCT 33.9 % (34.0-46.0); HGB 10.8 gm/dL (11.4-16.0); Hypochromasia Slight; MCH 24.5 pg (25.0-35.0); MCHC 31.7 g/dL (31.0-37.0); MCV 77.2 fL (80.0-100.0); Mean Platelet Volume 7.8; Microcytosis Slight; Platelet Count 225 k/uL (150-450); RBC 4.39 m/uL (3.80-5.40); RDW 16.3 % (11.5-15.5)
[2017-04-21 17:41] LABS: Potassium 4.1 mmol/L (3.5-5.1)
== END | disposition home or self-care (01) ==
LOC: LABPAT 16:44
PROVIDERS: ATTEND Internal Medicine Interventional Cardiology
DX: Z01.812 Encounter for preprocedural laboratory examination (principal); I34.0 Nonrheumatic mitral (valve) insufficiency
CPT/HCPCS: 36415; 80051; 82565; 84520; 85027

== ENCOUNTER → 2017-04-27 | Outpatient (CLI) | payer MEDICARE, BC ==
--- NOTE | 2017-04-27 12:54 | XR ---
EXAMINATION TYPE: XR chest 2V DATE OF EXAM: 04/27/2017 COMPARISON: 09/10/2016 TECHNIQUE: PA and lateral views submitted. HISTORY: Shortness of breath FINDINGS: The lungs are clear and there is no pneumothorax, pleural effusion, or focal pneumonia. Atheroscler otic change aorta. Surgical clips in the abdomen. IMPRESSION: 1. No acute process.
== END | disposition home or self-care (01) ==
LOC: RADXRMAIN 12:13
PROVIDERS: ATTEND Internal Medicine Geriatric Medicine
DX: R06.02 Shortness of breath (principal)
CPT/HCPCS: 71046

== ENCOUNTER 2017-04-28 10:29 | Day surgery (SDC) | payer MEDICARE, BC ==
[2017-04-27 09:46] VITALS: BMI 29.4
[2017-04-28 10:45] VITALS: TEMP 98.6
[2017-04-28] MEDS ORDERED: MIDAZOLAM 2 MG/2 ML VIAL ONE (12:37)
[2017-04-28] MEDS ORDERED: fentaNYL (PF) 50 MCG/ML 2 ML AMP ONE (12:38)
[2017-04-28] MEDS ORDERED: SODIUM CHLORIDE 0.9% 500 ML IV ONE (12:40)
[2017-04-28] MEDS: BENZOCAINE SPRAY 1 SPRAY CAN TOPICAL ONE ×2 (12:53→12:55)
[2017-04-28] MEDS ORDERED: fentaNYL (PF) 50 MCG/ML 2 ML AMP IVP ONE (12:58)
[2017-04-28] MEDS ORDERED: MIDAZOLAM 2 MG/2 ML VIAL IVP ONE ×2 (12:59→13:00)
--- NOTE | 2017-04-28 13:43 | ECHOT ---
TRANSESOPHAGEAL ECHOCARDIOGRAM DATE OF SERVICE: 04/28/2017 PERFORMING PHYSICIAN: Dilan Wang MD, manager human capital. PROCEDURE PERFORMED: Transesophageal echocardiogram. INDICATION: This is a pleasant 76-year-old female patient who was experiencing exertional dyspnea. She underwent a transthoracic echocardiogram and that revealed mild to moderate MR. Because of the dyspnea was getting worse, I was concerned about the severity of the MR. She was brought today to undergo transesophageal echocardiogram. COMPLICATION: None. LEVEL OF SEDATION: Moderate with sedation length of 11 minutes. PROCEDURE DESCRIPTION: After obtaining an informed consent, explaining the procedure, benefits, risks, complications and alternatives, the patient was brought to the transesophageal echocardiogram suite. A pulse oximetry and heart rate monitors were attached to the patient prior to the procedure. The patient's throat was sprayed using lidocaine locally. Following that, the patient was turned into left lateral position. A bite guard was placed and the patient was then sedated with the above doses of Versed and fentanyl in divided doses. Following that, the transesophageal echocardiogram probe was advanced through the bite guard into the mid esophagus where 2-D echocardiogram images as well as color Doppler images of various cardiac structures were obtained. We evaluated the interatrial septum using 2-D echocardiogram, color Doppler, and contrast study. The procedure was completed. There were no complications. FINDINGS: The left ventricular dimension and systolic function appeared to be within normal limits. The ejection fraction appeared to be in the range of 55% to 60% with normal wall motion. The right ventricle is of normal size and function. The left atrium appeared to be dilated. The left atrial appendage appeared to be free from any thrombus. The interatrial septum appeared to be intact without any evidence of shunt. The aortic valve is trileaflet valve and seems to be slightly thickened and calcified without stenosis or regurgitation. The mitral valve seems to be also thickened with moderate MR. Normal tricuspid valve and pulmonic valve seen. CONCLUSION: 1. Normal left ventricular dimension and systolic function with an ejection fraction of 55% to 60% and normal wall motion. 2. Normal left atrial appendage without any evidence of thrombus. 3. Intact interatrial septum without any evidence of shunt. 4. Thickened mitral valve leaflets with moderate mitral regurgitation. 5. Trileaflet aortic valve without stenosis or regurgitation. 6. Dilated left atrium. 7. Normal tricuspid valve and pulmonic valve. 8. No evidence of pericardial effusion. MMODL / IJN: [id number] /
[2017-04-28 16:01] VITALS: BP 132/63; PULSE 68; RESP 20
== END 2017-04-28 15:10 | disposition home or self-care (01) ==
LOC: CATHCVL 10:29
PROVIDERS: ATTEND Internal Medicine Interventional Cardiology
DX: I34.0 Nonrheumatic mitral (valve) insufficiency (principal); R01.1 Cardiac murmur, unspecified; Z82.49 Family history of ischemic heart disease and other diseases of the circulatory system; Z79.899 Other long term (current) drug therapy; Z88.5 Allergy status to narcotic agent; Z87.891 Personal history of nicotine dependence
CPT/HCPCS: 93312; 93320; 93325; J2250; J3010

== ENCOUNTER → 2017-05-14 | Outpatient (CLI) | payer MEDICARE, BC ==
--- NOTE | 2017-05-14 16:25 | CT ---
EXAMINATION TYPE: High-resolution CT chest DATE OF EXAM: 05/14/2017 COMPARISON: 09/10/2016 HISTORY: 76-year-old female shortness of breath, evaluate for pulmonary fibrosis TECHNIQUE: Contiguous high-resolution axial scanning of the chest utilizing 1 mm slice thickness and 1 cm gap for HRCT protocol. Contrast was not administered. Both supine and and prone positioning CT DLP: 558.00 mGycm Automated exposure control for dose reduction was used. FINDINGS: Heart is normal size with a trace anterior basilar pericardial fluid. Coronary vessel calcifications are present and are a marker for coronary artery disease. There is normal caliber with conventional arch vessel branching anatomy and mild atherosclerotic calc ifications. No thoracic lymphadenopathy identified. The previous large hiatal hernia appears to have resolved. There is no honeycombing, dominant groundglass, centrilobular nodules, tree-in-bud opacities, thicken ing of the bronchovascular bundles, mosaic attenuation, or bronchiectasis. No cystic change identifie d. HRCT technique limited for assessment of pulmonary nodules. Some strandy atelectasis at the inferior lingula. No consolidation or pleural effusion. Visualized upper abdomen shows cholecystectomy clips. Bones: Endplate spondylosis mid to lower thoracic spine. IMPRESSION: 1. NO SPECIFIC FINDINGS OF CHRONIC INTERSTITIAL LUNG DISEASE OR IDIOPATHIC INTERSTITIAL PNEUMONITIS. 2. CORONARY ARTERY CALCIFICATIONS ARE A MARKER FOR CORONARY ARTERY DISEASE. 3. PREVIOUS LARGE HIATAL HERNIA RESOLVED.
== END | disposition home or self-care (01) ==
LOC: RADCTMAIN 15:48
PROVIDERS: ATTEND Internal Medicine Critical Care Medicine
DX: I25.10 Atherosclerotic heart disease of native coronary artery without angina pectoris (principal)
CPT/HCPCS: 71250

== ENCOUNTER → 2018-02-23 | Outpatient (CLI) | payer MEDICARE, BC ==
[2018-02-23 13:49] VITALS: BP 144/80; PULSE 70; RESP 18; TEMP 97.9; BMI 30.9
--- NOTE | 2018-02-23 15:40 | P.HPOB ---
History of Present Illness H&P Date: 02/23/18 Chief Complaint: The patient is here for her routine gynecologic exam. This is a 77-year-old G3 PIII with an LMP of approximately 1987. The patient is here to establish with this office. She is without gynecologic complaints and denies any postmenopausal bleeding. Review of Systems She states she has lost about 10 pounds after her hiatal hernia surgery done last year. Respiratory: occasional shortness of breath related to her recent diagnosis of asthma. She denies cardiac or G.I. problems. She denies maltreatment or problems with falling. : she has had occasional urine leakage with coughing or if she does not get to the bathroom quick enough. She has also had slight stool incontinence on occasion. Past Medical History Past Medical History: Asthma, GERD/Reflux, Osteoarthritis (OA), Thyroid Disorder (Hypothyroid) Additional Past Medical History / Comment(s): HEART MURMUR, ROSACEA, LOW, SOB w/ exertion History of Any Multi-Drug Resistant Organisms: None Reported Past Surgical History: Adenoidectomy, Cholecystectomy, Orthopedic Surgery, Tonsillectomy Additional Past Surgical History / Comment(s): ovarian cyst; bunionectomies, repair of hiatal hernia Past Anesthesia/Blood Transfusion Reactions: No Reported Reaction Past Psychological History: No Psychological Hx Reported Smoking Status: Never smoker Past Alcohol Use History: Occasional Additional Past Alcohol Use History / Comment(s): qUIT SMOKING APPROX 20 YEARS AGO. SHE WAS A SOCIAL SMOKER . Past Drug Use History: None Reported - Past Family History Son(s) Additional Family Medical History / Comment(s): from brain tumor Brother(s) Family Medical History: Coronary Artery Disease (CAD), Diabetes Mellitus, Myocardial Infarction (DC) Additional Family Medical History / Comment(s): Patient has 2 brothers and one has coronary artery disease, first myocardial infarction at age 43 and is currently 77 years of age. Second brother has history of diabetes. Daughter(s) Family Medical History: No Reported History Additional Family Medical History / Comment(s): . Father Family Medical History: Cancer Additional Family Medical History / Comment(s): Father has history of lung cancer and coronary artery disease. . Mother Family Medical History: Cancer (Uterine and ovarian cancer) Additional Family Medical History / Comment(s): Mother at age 79 from ovarian cancer. Medications and Allergies Home Medications Medication Instructions Recorded Confirmed Type Levothyroxine Sodium [Synthroid] 100 mcg PO DAILY 03/30/15 02/23/18 History Tio/D3/Mag11/Zinc/Inspector Outside Production/Aamir/Bor 1 tab PO BID 09/07/15 02/23/18 History [Caltrate 600+D Plus Tablet] Glucosam/Hakan-Msm1/C/Aamir/Bosw 1 tab PO BID 09/07/15 02/23/18 History [Glucosamine-Chondroitin Tablet] Multivit-Min/FA/Lycopen/Lutein 1 tab PO DAILY 09/07/15 02/23/18 History [Centrum Silver Tablet] Omeprazole [PriLOSEC] 20 mg PO DAILY 09/07/15 02/23/18 History Vit A/Vit C/Vit E/Zinc/Copper 1 cap PO BID 09/07/15 02/23/18 History [ICAPS SOFTGEL] Desonide [Desonate] 60 gm TP BID 04/27/17 02/23/18 History metroNIDAZOLE [metroNIDAZOLE 1 applic TOPICAL BID 04/27/17 02/23/18 History Lotion] Allergies Allergy/AdvReac Type Severity Reaction Status Date / Time propoxyphene HCl Allergy Nausea Verified 04/27/17 09:29 [From Darvon] propoxyphene napsylate Allergy Nausea Verified 04/27/17 09:29 [From Darvocet-N] codeine AdvReac Nausea & Verified 04/27/17 09:29 Vomiting Exam Vital Signs Temp Pulse Resp BP Pulse Ox 02/23/18 13:23 97.9 F 70 18 144/80 98 Intake and Output 02/22/18 02/23/18 02/23/18 22:59 06:59 14:59 Other: Weight 74.389 kg Height 5'1", weight 164 pounds, BMI 31.0. This is a well-developed well-nourished white female who is alert and oriented times 3 in no acute distress. HEENT: Within normal limits. NECK: Supple without mass or thyromegaly. CHEST AND LUNGS: Clear to auscultation. HEART: Regular rate and rhythm. BREASTS: Are without mass or discharge. AXILLARY EXAM: Negative for adenopathy. BACK: Negative for CVA tenderness. ABDOMEN: Soft, nontender, without palpable masses. PELVIC EXAM: Normal external genitalia with moderate atrophy. Cervix and vagina appear normal with moderate atrophy. There is no unusual discharge. There is no evidence of prolapse. The uterus is midposition, nongravid size and nontender. There are no palpable adnexal masses or tenderness. RECTAL EXAM: recto vaginal exam is negative for mass or tenderness and is negative for occult blood. EXTREMITIES: Nontender. IMPRESSION: 1. 77-year-old menopausal female with normal gynecologic exam. 2. Family history of ovarian cancer in her mother. PLAN: 1. Pap smear was performed. 2. Self breast awareness was discussed with the patient. 3. Screening mammogram is due. She states she has an appointment for this in 2 days. The order slip was given to the patient by her primary care physician. 4. Osteoporosis prevention was discussed. I have stressed the importance of adequate calcium, vitamin D and regular exercise. Recommended amounts of calcium and vitamin D were also discussed. She is scheduled for a bone density test in 2 days and has the order slip for this as ordered by her primary care physician. 5. I have recommended yearly pelvic ultrasound because of her family history of ovarian cancer in her mother. The order slip was given to the patient for this. 6. She did receive for flu shot this past fall. 7. She will return in one year.
== END | disposition home or self-care (01) ==
LOC: WWCWWP 13:12
PROVIDERS: ATTEND Obstetrics & Gynecology
DX: Z53.9 Procedure and treatment not carried out, unspecified reason (principal)

== ENCOUNTER → 2018-02-25 | Outpatient (CLI) | payer MEDICARE, BC ==
--- NOTE | 2018-02-25 15:21 | US ---
EXAMINATION TYPE: US pelvis complete transvag DATE OF EXAM: 02/25/2018 COMPARISON: NONE CLINICAL HISTORY: Z80.41 FAMILY HISTORY OF CA. TECHNIQUE: Transvaginal (TV) and Transabdominal (TA) . Transabdominal sonographic images of the pel vis were acquired. Transvaginal sonographic images were medically necessary to better assess the fol lowing anatomy: lt ovary Date of LMP: post menopausal, no HRT. EXAM MEASUREMENTS: Uterus: 4.6 x 1.6 x 4.2 cm Endometrial Stripe: 0.2 cm Right Ovary: Surgically absent cm Left Ovary: 1.1 x 0.6 x 1.1 cm Rt ovary surgically absent per patient 1. Uterus: Anteverted heterogeneous echotexture 2. Endometrium: fluid within canal 3. Right Ovary: Surgically absent 4. Left Ovary: wnl 5. Bilateral Adnexa: wnl 6. Posterior cul-de-sac: no free fluid Heterogeneous anteverted uterus is seen. Endometrial stripe is not suspiciously thickened. Small amou nt of fluid is noted within the endometrial canal. No free fluid is seen in pelvic cul-de-sac. Right ovary is not distinctly identified and may be surgically absent. Left ovary is normal in size. IMPRESSION: No suspicious ovarian or adnexal masses identified.
== END ==
LOC: RADUSWWP 14:18
PROVIDERS: ATTEND Obstetrics & Gynecology
DX: Z12.73 Encounter for screening for malignant neoplasm of ovary (principal); Z80.41 Family history of malignant neoplasm of ovary
CPT/HCPCS: 76830; 76856

== ENCOUNTER → 2018-02-25 | Outpatient (CLI) | payer MEDICARE, BC ==
--- NOTE | 2018-02-28 13:00 | MM ---
Reason for exam: screening (asymptomatic). Last mammogram was performed 1 year and 1 month ago. History: Patient is postmenopausal. Family history of breast cancer in aunt. Benign left mammotome panel of the left breast, October 06, 2005. Benign stereotactic core biopsy of the right breast, July 28, 2002. Took estrogen for 15 years beginning at age 44. Took progesterone for 15 years beginning at age 44. Taking other hormone for 5 years beginning at age 61. MG 3D Screening Mammo W/Cad Bilateral CC and MLO view(s) were taken. Prior study comparison: February 03, 2017, bilateral MG 3d screening mammo w/cad. January 04, 2016, bilateral MG 3d screening mammo w/cad. The breast tissue is heterogeneously dense. This may lower the sensitivity of mammography. Bilateral previous mammotome biopsies. There are benign-appearing bilateral breast calcifications. No significant changes when compared with prior studies. ASSESSMENT: Benign, BI-RAD 2 RECOMMENDATION: Routine screening mammogram of both breasts in 1 year.
== END ==
LOC: RADMAMWWP 14:20
PROVIDERS: ATTEND Internal Medicine Geriatric Medicine
DX: Z12.31 Encounter for screening mammogram for malignant neoplasm of breast (principal)
CPT/HCPCS: 77063; 77067

== ENCOUNTER → 2018-08-30 | Outpatient (CLI) | payer MEDICARE, BC ==
--- NOTE | 2018-08-30 16:38 | XR ---
EXAMINATION TYPE: XR abdomen complete w decub DATE OF EXAM: 08/30/2018 COMPARISON: Prior exam 09/10/2016 HISTORY: Diverticulitis TECHNIQUE: Supine, upright, and left side down lateral decubitus views of the abdomen are obtained. FINDINGS: Surgical clips are present in the right upper quadrant. There is no evidence for pneumoperitoneum. The bowel gas pattern is unremarkable as there is air throughout nondilated small and large bowel. There are air-fluid levels without bowel distention. No mass effects are seen. No unusual calcifications. IMPRESSION: Postop changes
== END | disposition home or self-care (01) ==
LOC: RADXRMAIN 15:16
PROVIDERS: ATTEND Internal Medicine
DX: K57.93 Diverticulitis of intestine, part unspecified, without perforation or abscess with bleeding (principal); Z98.890 Other specified postprocedural states
CPT/HCPCS: 74021

== ENCOUNTER → 2018-12-29 | Outpatient (CLI) | payer MEDICARE, BC | END | disposition home or self-care (01) | LOC: CPPFTMAIN 09:34 | PROVIDERS: ATTEND Internal Medicine Critical Care Medicine | DX: J45.909 Unspecified asthma, uncomplicated (principal) | CPT/HCPCS: 94060; 94726; 94729 ==

== ENCOUNTER → 2019-03-29 | Outpatient (CLI) | payer MEDICARE, BC ==
[2019-03-29 11:40] VITALS: BP 155/76; PULSE 72; RESP 18; TEMP 97.5
--- NOTE | 2019-03-29 12:20 | P.HPOB ---
History of Present Illness H&P Date: 03/29/19 Chief Complaint: The patient is here for her routine gynecologic exam and ma mmogram. This is a 78-year-old with an LMP of 1987. The patient is here for her routine gynecologic examination is without gynecologic complaints. She denies any postmenopausal bleeding. Review of Systems She has gained about 6 pounds over the last year.. She denies respiratory, cardiac and G.I. problems. She denies maltreatment or problems with falling. : she denies any significant problems with urinary leakage. Past Medical History Past Medical History: GERD/Reflux, Osteoarthritis (OA), Thyroid Disorder Additional Past Medical History / Comment(s): Hypothyroid, HEART MURMUR, LOW,ROSACEA. Osteopenia. 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 History of Any Multi-Drug Resistant Organisms: None Reported Past Surgical History: Adenoidectomy, Cholecystectomy, Orthopedic Surgery, Tonsillectomy Additional Past Surgical History / Comment(s): ovarian cyst; bunionectomies, repair of hiatal hernia. Colonoscopy 2016(was told no more needed) Past Anesthesia/Blood Transfusion Reactions: No Reported Reaction Past Psychological History: No Psychological Hx Reported Smoking Status: Former smoker Past Alcohol Use History: Daily (1 glass of wine per day) Additional Past Alcohol Use History / Comment(s): qUIT SMOKING APPROX 1997. SHE WAS A SOCIAL SMOKER . Past Drug Use History: None Reported Additional History: She is and is sexually active. - Past Family History Son(s) Additional Family Medical History / Comment(s): from brain tumor Brother(s) Family Medical History: Coronary Artery Disease (CAD), Diabetes Mellitus, Myoca rdial Infarction (HI) Additional Family Medical History / Comment(s): Patient has 2 brothers and one has coronary artery disease, first myocardial infarction at age 43 and is currently 76 years of age. Second brother has history of diabetes. Daughter(s) Family Medical History: No Reported History Additional Family Medical History / Comment(s): . Father Family Medical History: Cancer, Coronary Artery Disease (CAD) Additional Family Medical History / Comment(s): Father has history of lung cancer and coronary artery disease. . Mother Family Medical History: Cancer Additional Family Medical History / Comment(s): Mother at age 79 from ovarian cancer. Medications and Allergies Home Medications Medication Instructions Recorded Confirmed Type Levothyroxine Sodium [Synthroid] 100 mcg PO DAILY 03/30/15 03/29/19 History Glucosam/Hakan-Msm1/C/Aamir/Bosw 1 tab PO BID 09/07/15 03/29/19 History [Glucosamine-Chondroitin Tablet] Desonide [Desonate] 60 gm TP BID 04/27/17 03/29/19 History Albuterol Sulfate (Bottle) 0 mg INHALATION DAILY PRN 03/29/19 03/29/19 History [Ventolin] Biotin 300 mcg PO DAILY 03/29/19 03/29/19 History Budesonide-Formot 160-4.5 Mcg 2 puff INHALATION BID 03/29/19 03/29/19 History [Symbicort 160-4.5 Mcg Inhaler] Cholecalciferol [Vitamin D3 (25 5,000 unit PO DAILY 03/29/19 03/29/19 History Mcg = 1000 Iu)] Epinastine 0.05 drops BOTH EYES BID 03/29/19 03/29/19 History Montelukast [Singulair] 10 mg PO DAILY 03/29/19 03/29/19 History Vit C/E/Zn/Coppr/Lutein/Zeaxan 1 each PO DAILY 03/29/19 03/29/19 History [Preservision Areds 2 Softgel] Allergies Allergy/AdvReac Type Severity Reaction Status Date / Time Penicillins Allergy Rash/Hives Unverified 03/29/19 11:40 propoxyphene HCl Allergy Nausea Verified 03/29/19 11:40 [From Darvon] propoxyphene napsylate Allergy Nausea Verified 03/29/19 11:40 [From Darvocet-N] codeine AdvReac Nausea & Verified 03/29/19 11:40 Vomiting Exam Vital Signs Temp Pulse Resp BP Pulse Ox 03/29/19 11:35 97.5 F L 72 18 155/76 99 Intake and Output 03/28/19 03/29/19 03/29/19 22:59 06:59 14:59 Other: Weight 77.111 kg Height 5 feet 1 inch, weight 170 pounds, BMI 32.1. This is a well-developed well-nourished white female who is alert and oriented times 3 in no acute distress. HEENT: Within normal limits. NECK: Supple without mass or thyromegaly. CHEST AND LUNGS: Clear to auscultation. HEART: Regular rate and rhythm. BREASTS: Are without mass or discharge. AXILLARY EXAM: Negative for adenopathy. BACK: Negative for CVA tenderness. ABDOMEN: Soft, nontender, without palpable masses. There is a large birthmark on the right lateral aspect of her abdomen which has not changed according to the patient. PELVIC EXAM: Normal external genitalia with mild to moderate atrophy. Cervix and vagina appear normal is mild to moderate atrophy. There is no unusual discharge. There is no evidence of prolapse. The uterus is midposition, nongravid size and nontender. There are no palpable adnexal masses or tenderness. RECTAL EXAM: Rectovaginal exam is negative for mass or tenderness and is negative for occult blood. EXTREMITIES: Nontender. IMPRESSION: 1. 78-year-old menopausal female with normal gynecologic exam. 2. Family history of ovarian cancer in her mother. 3. Small amount of endometrial fluid on pelvic ultrasound 1 year ago with normal endometrial thickness. 4. Osteopenia PLAN: 1. Pap smear was done on 03/15/2018 and was deferred. We will obtain records from [facility] regarding her last 10 years of Pap smears to confirm adequate screening. We will consider discontinuing Pap smears once these have been obtained. 2. Self breast awareness was discussed with the patient. 3. Screening mammogram will be done today. 4. Osteoporosis prevention was discussed. I have stressed the importance of adequate calcium, vitamin D and regular exercise. Recommended amounts of calcium and vitamin D were also discussed. Bone density testing is scheduled for tomorrow. The order slip was given to the patient for this. 5. I look ultrasound will be scheduled and the order slip was given to the patient. 6. She did receive her flu shot this past fall. 7. The patient was advised to return in 1-2 years for her well woman examination.
--- NOTE | 2019-03-30 11:32 | MM ---
Reason for exam: screening (asymptomatic). Last mammogram was performed 1 year and 1 month ago. History: Patient is postmenopausal. Family history of breast cancer in aunt. Benign left mammotome panel of the left breast, October 06, 2005. Benign stereotactic core biopsy of the right breast, July 28, 2002. Took estrogen for 15 years beginning at age 44. Took progesterone for 15 years beginning at age 44. Taking other hormone for 5 years beginning at age 61. Physical Findings: A clinical breast exam by your physician is recommended on an annual basis and results should be correlated with mammographic findings. MG 3D Screening Mammo W/Cad Bilateral CC and MLO view(s) were taken. XCCL view(s) were taken of the left breast. Prior study comparison: February 25, 2018, bilateral MG 3d screening mammo w/cad. February 03, 2017, bilateral MG 3d screening mammo w/cad. There are scattered fibroglandular densities. No significant changes when compared with prior studies. ASSESSMENT: Benign, BI-RAD 2 RECOMMENDATION: Routine screening mammogram of both breasts in 1 year.
== END | disposition home or self-care (01) ==
LOC: WWCWWP 11:12
PROVIDERS: ATTEND Obstetrics & Gynecology
DX: Z12.31 Encounter for screening mammogram for malignant neoplasm of breast (principal)
CPT/HCPCS: 77063; 77067

== ENCOUNTER → 2019-03-30 | Outpatient (CLI) | payer MEDICARE, BC ==
--- NOTE | 2019-03-30 10:50 | US ---
EXAMINATION TYPE: US pelvis complete transvag DATE OF EXAM: 03/30/2019 COMPARISON: 02/25/2018 CLINICAL HISTORY: M89.9 Disorder of bone,Z80.41FH OVARIAN CA,R93.0. Follow up endometrial fluid, fami ly history of ovarian cancer. Right oopherectomy TECHNIQUE: Transvaginal (TV) and Transabdominal (TA) . Transabdominal sonographic images of the pel vis were acquired. Transvaginal sonographic images were medically necessary to better assess the fol lowing anatomy: endometrium Date of LMP: unknown EXAM MEASUREMENTS: Uterus: 5.5 x 1. 7 x 3.4 cm Endometrial Stripe: 0.27 cm Right Ovary: Surgically absent Left Ovary: unable to visualize 1. Uterus: Anteverted heterogeneous 2. Endometrium: fluid within 3. Right Ovary: Surgically absent 4. Left Ovary: Obscured by overlying bowel gas 5. Bilateral Adnexa: wnl 6. Posterior cul-de-sac: wnl IMPRESSION: There remains a small amount of fluid within the endometrium. Endometrium is thin and fin dings could be sequela of endometrial atrophy. Ensure no postmenopausal bleeding.
--- NOTE | 2019-03-30 11:02 | BD ---
EXAMINATION TYPE: Axial Bone Density DATE OF EXAM: 03/30/2019 COMPARISON: 02/03/2017 CLINICAL HISTORY: Z 78.0 Height: 61.25 Weight: 167 FRAX RISK QUESTIONS: Alcohol (3 or more units per day): no Family History (Parent hip fracture): no Glucocorticoids (More than 3mos): no (Ex: prednisone, prednisolone, methylprednisolone, dexamethasone, and hydrocortisone). History of Fracture in Adulthood: no Secondary Osteoporosis: 1. Type 1 Diabetes: no 2. Hyperthyroidism: no 3. Menopause before 45: no, at 44, not before 4. Malnutrition: no 5. Chronic liver disease: no Rheumatoid Arthritis: no Current Tobacco Use: no RISK FACTORS HISTORY OF: Surgery to Wrist (right/left): yes, both for cyst removal Family History of Osteoporosis: patient thinks her grandmother Active: yes Diet low in dairy products/other sources of calcium: no Postmenopausal woman: no Take estrogen and/or progesterone medications: not now How long: age 45-59 progesterone & estrogen Lost more than 2 inches in height since high school: no Frequent falls: no Poor Health: no Hyperparathyroidism: no Adrenal Insufficiency: no MEDICATIONS: Prednisone or other steroids: no Thyroid Medications: yes Which medication: Levothyroxine How Long: over 10 years Osteoporosis Medications: not now Which medication: Fosamax How Long: not even one year Additional Medications: multivitamin Additional History: none to note EXAM MEASUREMENTS: Bone mineral densitometry was performed using the Ambrx System. Bone mineral density as measured about the Lumbar spine is: ----- L1-L4(G/cm2): 1.011 T Score Values are as follows: ----- L2: -2.1 ----- L3: -1.2 ----- L4: -0.9 ----- L1-L4: -1.4 Bone mineral density has: Increased 1.5% since study of: 02/03/2017 Bone mineral density about the R hip (g/cm2): 0.884 Bone mineral density about the L hip (g/cm2): 0.891 T Score values are as follows: -----R Neck: -1.1 -----L Neck: -1.1 -----R Total: -0.6 -----L Total: -0.2 Bone mineral density has: Increased 3.1% since study of: 02/03/2017 IMPRESSION: Osteopenia (T Score between -2.5 and -1). There is slightly increased risk of fracture and the patient may be considered for treatment. Re-Screen 2-5 years. NOTE: T-SCORE=SD OF THE YOUNG ADULT MEAN.
== END | disposition home or self-care (01) ==
LOC: RADBDWWP 09:20
PROVIDERS: ATTEND Obstetrics & Gynecology
DX: M85.80 Other specified disorders of bone density and structure, unspecified site (principal); R93.89 Abnormal findings on diagnostic imaging of other specified body structures; Z80.41 Family history of malignant neoplasm of ovary; Z78.0 Asymptomatic menopausal state
CPT/HCPCS: 76830; 76856; 77080

== ENCOUNTER 2019-04-01 14:34 | Emergency (ER) | payer MEDICARE, BC ==
[2019-04-01 14:43] VITALS: TEMP 98.1
[2019-04-01] MEDS ORDERED: SODIUM CHLORIDE 0.9% 500 ML 500 ML IV STA (15:06)
[2019-04-01] MEDS ORDERED: LORazepam 2 MG/ML INJ IV STA (15:06)
--- NOTE | 2019-04-01 15:11 | ED ---
General Adult HPI - General Chief complaint: Arrhythmia/Palpitations Stated complaint: Palpitations Time Seen by Provider: 04/01/19 14:40 Source: patient, RN notes reviewed, old records reviewed Mode of arrival: ambulatory Limitations: no limitations - History of Present Illness Initial comments: This is a 78-year-old female presents emergency Department complaining that earlier she felt short of breath and felt as though her heart was racing. Patient states she's had multiple episodes of this in the past but doesn't last long. Patient states today seemed to last a little longer and she is a little lightheaded so someone called EMS for her. Patient was told to bear down in the ambulance and she did and her symptoms subsided. Patient states now she just feels a little jittery maybe a little anxious. Patient denies any chest pain or palpitations currently. Patient denies any shortness of breath currently. Patient denies any recent fever chills or cough. Patient denies any abdominal pain patient denies nausea vomiting diarrhea. Patient denies any lightheadedness currently or dizziness. Patient denies any swelling to the legs or calf tenderness. - Related Data Home Medications Medication Instructions Recorded Confirmed Levothyroxine Sodium [Synthroid] 100 mcg PO DAILY 03/30/15 04/01/19 Glucosam/Hakan-Msm1/C/Aamir/Bosw 1 tab PO BID 09/07/15 04/01/19 [Glucosamine-Chondroitin Tablet] Biotin 300 mcg PO DAILY 03/29/19 04/01/19 Budesonide-Formot 160-4.5 Mcg 2 puff INHALATION RT-HS 03/29/19 04/01/19 [Symbicort 160-4.5 Mcg Inhaler] Cholecalciferol [Vitamin D3 (25 5,000 unit PO DAILY 03/29/19 04/01/19 Mcg = 1000 Iu)] Epinastine 1 drop BOTH EYES BID 03/29/19 04/01/19 Montelukast [Singulair] 10 mg PO HS 03/29/19 04/01/19 Vit C/E/Zn/Coppr/Lutein/Zeaxan 1 tab PO BID 03/29/19 04/01/19 [Preservision Areds 2 Softgel] Albuterol Inhaler [Ventolin Hfa 1 - 2 puff INHALATION RT-Q6H PRN 04/01/19 04/01/19 Inhaler] Ascorbic Acid [Vitamin C] 500 mg PO DAILY 04/01/19 04/01/19 Desonide 0.05% Lotion 1 applic TOPICAL BID PRN 04/01/19 04/01/19 Multivitamins, Thera [Multivitamin 1 tab PO DAILY 04/01/19 04/01/19 (formulary)] Allergies Allergy/AdvReac Type Severity Reaction Status Date / Time Penicillins Allergy Rash/Hives Verified 04/01/19 16:27 propoxyphene HCl Allergy Nausea Verified 04/01/19 16:27 [From Darvon] propoxyphene napsylate Allergy Nausea Verified 04/01/19 16:27 [From Darvocet-N] codeine AdvReac Nausea & Verified 04/01/19 16:27 Vomiting Review of Systems ROS Statement: Those systems with pertinent positive or pertinent negative responses have been documented in the HPI. ROS Other: All systems not noted in ROS Statement are negative. Past Medical History Past Medical History: Asthma, GERD/Reflux, Osteoarthritis (OA), Thyroid Disorder Additional Past Medical History / Comment(s): Hypothyroid, HEART MURMUR, LOW,ROSACEA. Osteopenia. 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 History of Any Multi-Drug Resistant Organisms: None Reported Past Surgical History: Adenoidectomy, Cholecystectomy, Hernia Repair, Orthopedic Surgery, Tonsillectomy Additional Past Surgical History / Comment(s): ovarian cyst; bunionectomies, repair of hiatal hernia. Colonoscopy 2016(was told no more needed) Past Anesthesia/Blood Transfusion Reactions: No Reported Reaction Past Psychological History: No Psychological Hx Reported Smoking Status: Former smoker Past Alcohol Use History: Daily Past Drug Use History: None Reported - Past Family History Son(s) Additional Family Medical History / Comment(s): from brain tumor Brother(s) Family Medical History: Coronary Artery Disease (CAD), Diabetes Mellitus, Myocardial Infarction ([place]) Additional Family Medical History / Comment(s): Patient has 2 brothers and one has coronary artery disease, first myocardial infarction at age 43 and is currently 77 years of age. Second brother has history of diabetes. Daughter(s) Family Medical History: No Reported History Additional Family Medical History / Comment(s): . Father Family Medical History: Cancer, Coronary Artery Disease (CAD) Additional Family Medical History / Comment(s): Father has history of lung cancer and coronary artery disease. . Mother Family Medical History: Cancer Additional Family Medical History / Comment(s): Mother at age 79 from ovarian cancer. General Exam - General Exam Comments Initial Comments: GENERAL: Patient is well-developed and well-nourished. Patient is nontoxic and well- hydrated and is in mild distress. ENT: Neck is soft and supple. No significant lymphadenopathy is noted. Oropharynx is clear. Moist mucous membranes. Neck has full range of motion without eliciting any pain. EYES: The sclera were anicteric and conjunctiva were pink and moist. Extraocular movements were intact and pupils were equal round and reactive to light. Eyelids were unremarkable. PULMONARY: Unlabored respirations. Good breath sounds bilaterally. No audible rales rhonchi or wheezing was noted. CARDIOVASCULAR: There is a regular rate and rhythm without any murmurs gallops or rubs. ABDOMEN: Soft and nontender with normal bowel sounds. No palpable organomegaly was noted. There is no palpable pulsatile mass. SKIN: Skin is clear with no lesions or rashes and otherwise unremarkable. NEUROLOGIC: Patient is alert and oriented x3. Cranial nerves II through XII are grossly intact. Motor and sensory are also intact. Normal speech, volume and content. Symmetrical smile. MUSCULOSKELETAL: Normal extremities with adequate strength and full range of motion. No lower extremity swelling or edema. No calf tenderness. LYMPHATICS: No significant lymphadenopathy is noted PSYCHIATRIC: Patient is mildly anxious. Limitations: no limitations Course Vital Signs 04/01/19 04/01/19 04/01/19 14:38 15:00 15:30 Temperature 98.1 F Pulse Rate 99 82 64 Respiratory 24 16 18 Rate Blood Pressure 166/91 166/91 140/94 O2 Sat by Pulse 99 95 99 Oximetry Medical Decision Making - Medical Decision Making EKG shows normal sinus rhythm at 71 bpm [place] interval 146 QRS is 74 QT interval 374 QTC is 406. Patient's EKG shows no ST segment elevation or depression. Strip from EMS showed SVT at 182 beats a minute Patient's chest x-ray showed no acute abnormality. I went back into the room to reevaluate the patient and patient has not had any further episodes in the emergency department. Patient feels at her baseline at this point time. Patient will follow-up with her physician. - Lab Data Result diagrams: 04/01/19 14:45 04/01/19 14:45 Lab Results 04/01/19 04/01/19 04/01/19 Range/Units 14:45 14:45 14:45 WBC 5.6 (3.8-10.6) k/uL RBC 4.68 (3.80-5.40) m/uL Hgb 13.9 (11.4-16.0) gm/dL Hct 41.9 (34.0-46.0) % MCV 89.6 (80.0-100.0) fL MCH 29.7 (25.0-35.0) pg MCHC 33.1 (31.0-37.0) g/dL RDW 13.5 (11.5-15.5) % Plt Count 186 (150-450) k/uL Neutrophils % 64 % Lymphocytes % 25 % Monocytes % 5 % Eosinophils % 2 % Basophils % 2 % Neutrophils # 3.6 (1.3-7.7) k/uL Lymphocytes # 1.4 (1.0-4.8) k/uL Monocytes # 0.3 (0-1.0) k/uL Eosinophils # 0.1 (0-0.7) k/uL Basophils # 0.1 (0-0.2) k/uL PT 9.8 (9.0-12.0) sec INR 0.9 (<1.2) APTT 23.4 (22.0-30.0) sec Sodium 139 (137-145) mmol/L Potassium 4.4 (3.5-5.1) mmol/L Chloride 108 H (98-107) mmol/L Carbon Dioxide 20 L (22-30) mmol/L Anion Gap 11 mmol/L BUN 15 (7-17) mg/dL Creatinine 0.73 (0.52-1.04) mg/dL Est GFR (CKD-EPI)AfAm >90 (>60 ml/min/1.73 sqM) Est GFR (CKD-EPI)NonAf 79 (>60 ml/min/1.73 sqM) Glucose 114 H (74-99) mg/dL Calcium 10.1 (8.4-10.2) mg/dL Magnesium 1.7 (1.6-2.3) mg/dL Total Bilirubin 0.4 (0.2-1.3) mg/dL AST 26 (14-36) U/L ALT 16 (4-34) U/L Alkaline Phosphatase 86 (38-126) U/L Troponin I (0.000-0.034) ng/mL Total Protein 7.0 (6.3-8.2) g/dL Albumin 4.5 (3.5-5.0) g/dL TSH 0.051 L (0.465-4.680) mIU/L 04/01/19 Range/Units 14:45 WBC (3.8-10.6) k/uL RBC (3.80-5.40) m/uL Hgb (11.4-16.0) gm/dL Hct (34.0-46.0) % MCV (80.0-100.0) fL MCH (25.0-35.0) pg MCHC (31.0-37.0) g/dL RDW (11.5-15.5) % Plt Count (150-450) k/uL Neutrophils % % Lymphocytes % % Monocytes % % Eosinophils % % Basophils % % Neutrophils # (1.3-7.7) k/uL Lymphocytes # (1.0-4.8) k/uL Monocytes # (0-1.0) k/uL Eosinophils # (0-0.7) k/uL Basophils # (0-0.2) k/uL PT (9.0-12.0) sec INR (<1.2) APTT (22.0-30.0) sec Sodium (137-145) mmol/L Potassium (3.5-5.1) mmol/L Chloride (98-107) mmol/L Carbon Dioxide (22-30) mmol/L Anion Gap mmol/L BUN (7-17) mg/dL Creatinine (0.52-1.04) mg/dL Est GFR (CKD-EPI)AfAm (>60 ml/min/1.73 sqM) Est GFR (CKD-EPI)NonAf (>60 ml/min/1.73 sqM) Glucose (74-99) mg/dL Calcium (8.4-10.2) mg/dL Magnesium (1.6-2.3) mg/dL Total Bilirubin (0.2-1.3) mg/dL AST (14-36) U/L ALT (4-34) U/L Alkaline Phosphatase (38-126) U/L Troponin I <0.012 (0.000-0.034) ng/mL Total Protein (6.3-8.2) g/dL Albumin (3.5-5.0) g/dL TSH (0.465-4.680) mIU/L Disposition Clinical Impression: SVT (supraventricular tachycardia) Disposition: HOME SELF-CARE Instructions (If sedation given, give patient instructions): Supraventricular Tachycardia (ED) Is patient prescribed a controlled substance at d/c from ED?: No Referrals: Ugo Syed MD [Primary Care Provider] - 1-2 days Time of Disposition: 15:53
[2019-04-01 15:21] LABS: Basophils # (A) 0.1 k/uL (0-0.2); Basophils % (A) 2 %; Eosinophils # (A) 0.1 k/uL (0-0.7); Eosinophils % (A) 2 %; HCT 41.9 % (34.0-46.0); HGB 13.9 gm/dL (11.4-16.0); Lymphocytes # (A) 1.4 k/uL (1.0-4.8); Lymphocytes % (A) 25 %; MCH 29.7 pg (25.0-35.0); MCHC 33.1 g/dL (31.0-37.0); MCV 89.6 fL (80.0-100.0); Mean Platelet Volume 9.1; Monocytes # (A) 0.3 k/uL (0-1.0); Monocytes % (A) 5 %; Neutrophils # (A) 3.6 k/uL (1.3-7.7); Neutrophils % (A) 64 %; Platelet Count 186 k/uL (150-450); RBC 4.68 m/uL (3.80-5.40); RDW 13.5 % (11.5-15.5); WBC 5.6 k/uL (3.8-10.6)
--- NOTE | 2019-04-01 15:29 | XR ---
EXAMINATION TYPE: XR chest 2V DATE OF EXAM: 04/01/2019 COMPARISON: Prior chest 04/27/2017 HISTORY: Dysrhythmia TECHNIQUE: Frontal and lateral views of the chest are obtained. FINDINGS: There is no focal air space opacity, pleural effusion, or pneumothorax seen. The cardiac silhouette size is within normal limits. The osseous structures are intact. Surgical clips are pres ent in the right upper quadrant. There are overlying cardiac leads. The aorta is dense. Lung volumes are low on the frontal exam. IMPRESSION: No acute cardiopulmonary process. Follow-up as indicated.
[2019-04-01 15:30] LABS: ALT 16 U/L (4-34); AST 26 U/L (14-36); African American GFR (CKD) >90 (>60 ml/min/1.73 sqM); Albumin 4.5 g/dL (3.5-5.0); Alkaline Phosphatase 86 U/L (38-126); Anion Gap 11 mmol/L; Blood Urea Nitrogen 15 mg/dL (7-17); Calcium 10.1 mg/dL (8.4-10.2); Carbon Dioxide 20 mmol/L (22-30); Chloride 108 mmol/L (98-107); Glucose 114 mg/dL (74-99); Magnesium 1.7 mg/dL (1.6-2.3); Non-African American GFR(CKD) 79 (>60 ml/min/1.73 sqM); Potassium 4.4 mmol/L (3.5-5.1); Sodium 139 mmol/L (137-145); Total Bilirubin 0.4 mg/dL (0.2-1.3)
[2019-04-01 15:36] LABS: INR 0.9 (<1.2); Partial Thromboplastin Time 23.4 sec (22.0-30.0); Prothrombin Time 9.8 sec (9.0-12.0)
[2019-04-01 15:50] VITALS: PULSE 64; RESP 18
[2019-04-01 21:07] VITALS: BP 135/64
== END 2019-04-01 17:33 | disposition home or self-care (01) ==
LOC: EC 14:34
DX: I47.1 Supraventricular tachycardia (principal); J45.909 Unspecified asthma, uncomplicated; E03.9 Hypothyroidism, unspecified; Z87.891 Personal history of nicotine dependence; Z88.0 Allergy status to penicillin; Z88.5 Allergy status to narcotic agent; Z79.51 Long term (current) use of inhaled steroids; Z79.890 Hormone replacement therapy; Z79.899 Other long term (current) drug therapy; Z82.49 Family history of ischemic heart disease and other diseases of the circulatory system
CPT/HCPCS: 99285; 96374; 36415; 93005; 80053; 83735; 84443; 84484; 85025; 85610; 85730; 71046; J2060

== ENCOUNTER → 2020-05-22 | Outpatient (CLI) | payer MEDICARE, BC ==
[2020-05-22 10:52] VITALS: BP 123/77; PULSE 76; RESP 20; TEMP 98
--- NOTE | 2020-05-22 11:39 | P.HPOB ---
History of Present Illness H&P Date: 05/22/20 Chief Complaint: The patient is here for her routine gynecologic exam and ma mmogram. This is an 79-year-old with an LMP of 1987. The patient is without gynecologic complaints and denies any postmenopausal bleeding. She has been followed with yearly pelvic ultrasounds because of her mother's history of ovarian cancer. She has had multiple pelvic ultrasound with small amount of endometrial fluid and this has been followed conservatively. She has noticed lower extremity edema greater on the left side for more than one year. She has discussed this with her PCP who has not done any additional testing. She denies pain in her lower extremities. Review of Systems Weight has been stable. Respiratory: Occasional asthma symptoms. She denies cardiac or GI problems. She denies maltreatment or problems with falling. : she denies any significant problems with urinary leakage. Musculoskeletal: She does have fairly frequent leg cramps. Past Medical History Past Medical History: Asthma, GERD/Reflux, Osteoarthritis (OA), Thyroid Disorder Additional Past Medical History / Comment(s): Hypothyroid, HEART MURMUR, LOW,ROSACEA. Osteopenia. 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 History of Any Multi-Drug Resistant Organisms: None Reported Past Surgical History: Adenoidectomy, Cholecystectomy, Hernia Repair, Orthopedic Surgery, Tonsillectomy Additional Past Surgical History / Comment(s): ovarian cyst; bunionectomies, repair of hiatal hernia. Colonoscopy 2016(was told no more needed) Past Anesthesia/Blood Transfusion Reactions: No Reported Reaction Past Psychological History: No Psychological Hx Reported Smoking Status: Former smoker Past Alcohol Use History: Occasional (3 per week) Additional Past Alcohol Use History / Comment(s): QUIT SMOKING APPROX 1997. SHE WAS A SOCIAL SMOKER . Past Drug Use History: None Reported Additional History: She is and is sexually active. - Past Family History Son(s) Additional Family Medical History / Comment(s): from brain tumor Brother(s) Family Medical History: Coronary Artery Disease (CAD), Diabetes Mellitus, Myocardial Infarction ([place]) Additional Family Medical History / Comment(s): Patient has 2 brothers and one has coronary artery disease, first myocardial infarction at age 43 and is currently 77 years of age. Second brother has history of diabetes. Daughter(s) Family Medical History: No Reported History Additional Family Medical History / Comment(s): . Father Family Medical History: Cancer, Coronary Artery Disease (CAD) Additional Family Medical History / Comment(s): Father has history of lung cancer and coronary artery disease. . Mother Family Medical History: Cancer Additional Family Medical History / Comment(s): Mother at age 79 from ovarian cancer. Medications and Allergies Home Medications Medication Instructions Recorded Confirmed Type Levothyroxine Sodium [Synthroid] 100 mcg PO DAILY 03/30/15 05/22/20 History Glucosam/Hakan-Msm1/C/Aamir/Bosw 1 tab PO BID 09/07/15 05/22/20 History [Glucosamine-Chondroitin Tablet] Biotin 300 mcg PO DAILY 03/29/19 05/22/20 History Budesonide-Formot 160-4.5 Mcg 2 puff INHALATION RT-HS 03/29/19 05/22/20 History [Symbicort 160-4.5 Mcg Inhaler] Cholecalciferol [Vitamin D3 (25 5,000 unit PO DAILY 03/29/19 05/22/20 History Mcg = 1000 Iu)] Epinastine 1 drop BOTH EYES BID 03/29/19 05/22/20 History Montelukast [Singulair] 10 mg PO HS 03/29/19 05/22/20 History Vit C/E/Zn/Coppr/Lutein/Zeaxan 1 tab PO BID 03/29/19 05/22/20 History [Preservision Areds 2 Softgel] Albuterol Inhaler (Mhu) [Ventolin 1 - 2 puff INHALATION RT-Q6H PRN 04/01/19 05/22/20 History Hfa Inhaler] Ascorbic Acid [Vitamin C] 500 mg PO DAILY 04/01/19 05/22/20 History Desonide 0.05% Lotion 1 applic TOPICAL BID PRN 04/01/19 05/22/20 History Multivitamins, Thera [Multivitamin 1 tab PO DAILY 04/01/19 05/22/20 History (formulary)] Allergies Allergy/AdvReac Type Severity Reaction Status Date / Time Penicillins Allergy Rash/Hives Verified 05/22/20 10:44 propoxyphene HCl Allergy Nausea Verified 05/22/20 10:44 [From Darvon] propoxyphene napsylate Allergy Nausea Verified 05/22/20 10:44 [From Matt-N] codeine AdvReac Nausea & Verified 05/22/20 10:44 Vomiting Exam Vital Signs Temp Pulse Resp BP Pulse Ox 05/22/20 10:46 98.0 F 76 20 123/77 98 Intake and Output 05/21/20 05/22/20 05/22/20 22:59 06:59 14:59 Other: Weight 78.018 kg Height 5 foot 1 inch, weight 172 pounds, BMI 32.5. This is a well-developed well-nourished white female who is alert and oriented times 3 in no acute distress. HEENT: Within normal limits. NECK: Supple without mass or thyromegaly. CHEST AND LUNGS: Clear to auscultation. HEART: Regular rate and rhythm. BREASTS: Are without mass or discharge. AXILLARY EXAM: Negative for adenopathy. BACK: Negative for CVA tenderness. ABDOMEN: Soft, nontender, without palpable masses. PELVIC EXAM: Normal external genitalia with mild to moderate atrophy. Cervix and vagina appear normal mild to moderate atrophy. There is no unusual discharge. There is no evidence of prolapse. The uterus is midposition, nongravid size and nontender. There are no palpable adnexal masses or tenderness. RECTAL EXAM: Rectovaginal exam is negative for mass or tenderness and is negative for occult blood. EXTREMITIES: Nontender. There is 1+ bilateral lower extremity edema which is slightly greater on the left side. Homans sign is negative. IMPRESSION: 1. 79-year-old menopausal female with normal gynecologic exam. 2. Family history of ovarian cancer in her mother. 3. History of incidental finding of small endometrial fluid with no endometrial thickening by multiple pelvic ultrasounds in the past. His has been followed conservatively. 4. History of osteopenia. 5. Mild lower extremity edema slightly greater on the left side with no significant physical findings on pelvic exam. PLAN: 1. Pap smears have been discontinued. 2. Self breast awareness was discussed with the patient. 3. Screening mammogram will be done today. 4. Osteoporosis prevention was discussed. I have stressed the importance of adequate calcium, vitamin D and regular exercise. Recommended amounts of calcium and vitamin D were also discussed. We will plan on repeating bone density testing in 1-2 years. 5. Pelvic ultrasound was recommended and this will continue to be done yearly because of her family history of ovarian cancer. The order slip was given to t corey patient for this. 6. We have had a long discussion regarding her lower extremity edema. At this time I have not come up with a cause for this. The pelvic ultrasound will be used 2 check for pelvic pathology which could block venous flow from the left lower extremity. I have also recommended that she try to minimize sodium intake and to try to rest more on the right side when she sleeps. She will continue to follow up with her primary care physician for her ongoing medical care and will also bring up her lower extremity edema next time she sees him. 7. She did receive her flu shot last fall and has completed her Covid vaccination series. 8. The patient was advised to return in 1-2 years for her well woman examination.
--- NOTE | 2020-05-23 09:27 | MM ---
Reason for exam: screening (asymptomatic). Last mammogram was performed 1 year and 2 months ago. History: Patient is postmenopausal. Family history of breast cancer in aunt. Benign left mammotome panel of the left breast, October 06, 2005. Benign stereotactic core biopsy of the right breast, July 28, 2002. Took estrogen for 15 years beginning at age 44. Took progesterone for 15 years beginning at age 44. Taking other hormone for 5 years beginning at age 61. Physical Findings: A clinical breast exam by your physician is recommended on an annual basis and results should be correlated with mammographic findings. MG 3D Screening Mammo W/Cad Bilateral CC and MLO view(s) were taken. Prior study comparison: March 29, 2019, bilateral MG 3d screening mammo w/cad. February 25, 2018, bilateral MG 3d screening mammo w/cad. The breast tissue is heterogeneously dense. This may lower the sensitivity of mammography. Stable calcifications. There is no discrete abnormality. No significant changes when compared with prior studies. ASSESSMENT: Benign, BI-RAD 2 RECOMMENDATION: Routine screening mammogram of both breasts in 1 year.
== END | disposition home or self-care (01) ==
LOC: WWCWWP 10:33
PROVIDERS: ATTEND Obstetrics & Gynecology
DX: Z12.31 Encounter for screening mammogram for malignant neoplasm of breast (principal); Z78.0 Asymptomatic menopausal state; Z80.41 Family history of malignant neoplasm of ovary; Z87.891 Personal history of nicotine dependence; J45.909 Unspecified asthma, uncomplicated; K21.9 Gastro-esophageal reflux disease without esophagitis; M19.90 Unspecified osteoarthritis, unspecified site; E03.9 Hypothyroidism, unspecified
CPT/HCPCS: 77063; 77067

== ENCOUNTER → 2020-06-01 | Outpatient (CLI) | payer MEDICARE, BC ==
--- NOTE | 2020-06-03 17:09 | US ---
EXAMINATION TYPE: US pelvis complete transvag DATE OF EXAM: 06/01/2020 COMPARISON: 03/30/2019 CLINICAL HISTORY: 79-year-old female Z80.41 Ovarian Ca. Right ovary removed. TECHNIQUE: Transvaginal (TV) and Transabdominal (TA) . Transabdominal sonographic images of the pel vis were acquired. 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 Uterus: Anteverted Peripheral echogenic areas seen. 2. Endometrium: The stripe itself appears thin but is split by 3 mm of fluid within the uterine cavi ty 3. Right Ovary: Surgically absent 4. Left Ovary: Obscured by overlying bowel gas 5. Bilateral Adnexa: wnl 6. Posterior cul-de-sac: no free fluid IMPRESSION: The thin endometrial stripe is split by 3 mm of fluid within the uterine cavity. Cervical stenosis is a consideration. Recommend direct visualization. Unable to visualize the left ovary.
--- NOTE | 2020-06-05 09:17 | P.PN ---
Progress Note - Text Progress Note Date: 06/05/20 OUTPATIENT FOLLOW-UP NOTE TEST(S)/RESULTS: Pelvic ultrasound done on 06/01/2020 shows no adnexal masses. The endometrium is thin and there is a small amount of endometrial fluid within the uterine cavity. Similar findings were noted on previous ultrasounds going back to 2019. METHOD OF NOTIFICATION: The patient was notified by phone. PATIENT COMMENTS: The patient denies any postmenopausal bleeding. DIAGNOSIS: Family history of ovarian cancer in her mother with no evidence of o varian cancer by pelvic ultrasound. Small amount of endometrial fluid which is unchanged from her last pelvic ultrasound done last year. DISCUSSION: I have reviewed the images from last year's pelvic ultrasound and was able to compare this with the recent pelvic ultrasound and there is no change with the endometrial fluid. Again, I have confirmed that the endometrium appears thin. PLAN: The patient was instructed to call if she has any vaginal bleeding. She was advised to return in one year for her annual well woman exam. We will plan on again repeating the pelvic ultrasound in one year.
== END | disposition home or self-care (01) ==
LOC: RADUSWWP 10:58
PROVIDERS: ATTEND Obstetrics & Gynecology
DX: Z80.41 Family history of malignant neoplasm of ovary (principal); Z90.721 Acquired absence of ovaries, unilateral
CPT/HCPCS: 76830; 76856

== ENCOUNTER 2020-06-05 16:52 | Emergency (ER) | payer MEDICARE, BC ==
[2020-06-05 17:04] VITALS: RESP 18
--- NOTE | 2020-06-05 17:18 | ED ---
General Adult HPI - General Chief complaint: Back Pain/Injury Stated complaint: back pain Time Seen by Provider: 06/05/20 16:55 Source: patient Mode of arrival: EMS Limitations: physical limitation - History of Present Illness Initial comments: Dictation was produced using Ter[employer] dictation software. please excuse any grammatical, word or spelling errors. This patient was cared for during a federal and state declared state of emergency secondary to Covid 19 Chief Complaint: 79-year-old female past medical history of severe hiatal hernia requiring surgical repair presents emergency department for epigastric abdominal pain and back pain. History of Present Illness: Patient is an 79-year-old female she denies any significant comorbidities. She states that approximately 1-2 hours prior to arrival she experienced acute onset of back pain and epigastric abdominal pain. She would use restroom had passage of stools with out any changes of her symptoms. Patient also had some nausea without any emesis. She denies any constitutional symptoms. She states her symptoms are slightly improved compared to its initial onset. She refusing any pain or nausea medications. She states that 3 years ago she had severe hiatal hernia that required surgical repair at [facility]. at bedside reports that surgeon who initially evaluated herself states that she had one of the worst cases of hiatal hernia that she's ever seen. She denies any associated diaphoresis. The ROS documented in this emergency department record has been reviewed and confirmed by me. Those systems with pertinent positive or negative responses have been documented in the HPI. All other systems are other negative and/or noncontributory. PHYSICAL EXAM: General Impression: Alert and oriented x3, not in acute distress HEENT: Normocephalic atraumatic, extra-ocular movements intact, pupils equal and reactive to light bilaterally, mucous membranes moist. Cardiovascular: Heart regular rate and rhythm Chest: Able to complete full sentences, no retractions, no tachypnea, left midthoracic palpatory tenderness Abdomen: abdomen soft, palpatory epigastric abdominal tenderness, non-distended, no organomegaly Musculoskeletal: Pulses present and equal in all extremities, no peripheral edema Motor: no focal deficits noted Neurological: CN II-XII grossly intact, no focal motor or sensory deficits noted Skin: Intact with no visualized rashes Psych: Normal affect and mood ED course: 79-year-old male presents with epigastric pain and thoracic left back pain acutely. Vital signs upon arrival are within acceptable limits. Lavatory evaluation obtained. CBC unremarkable. Coag panel is negative. Metabolic panel is negative. Troponin is negative. Acute abdominal series shows no acute processes. Patient was ordered for GI cocktail. She reported immediate and complete resolution of her symptoms. She is well-appearing at bedside. She does not have any risk factors for acute coronary syndrome besides age. She does have an history of coronary artery disease. More likely diagnosis is gastritis first peptic ulcer given complete resolution of symptoms after GI cocktail. Patient agreeable for discharge. She started on Protonix a nd given referral to gastroenterology. Return primary discussed. Patient will be discharged. EKG interpretation: Ventricular rate 70, normal sinus rhythm, AL interval 1:30, QRS 74, QTC 427. No AL prolongation, no QTC prolongation, no ST or T-wave changes noted. EKG compared to April 01 2019 showing no changes. Overall, this EKG is unremarkable - Related Data Home Medications Medication Instructions Recorded Confirmed Levothyroxine Sodium [Synthroid] 100 mcg PO DAILY 03/30/15 05/22/20 Glucosam/Hakan-Msm1/C/Aamir/Bosw 1 tab PO BID 09/07/15 05/22/20 [Glucosamine-Chondroitin Tablet] Biotin 300 mcg PO DAILY 03/29/19 05/22/20 Budesonide-Formot 160-4.5 Mcg 2 puff INHALATION RT-HS 03/29/19 05/22/20 [Symbicort 160-4.5 Mcg Inhaler] Cholecalciferol [Vitamin D3 (25 5,000 unit PO DAILY 03/29/19 05/22/20 Mcg = 1000 Iu)] Epinastine 1 drop BOTH EYES BID 03/29/19 05/22/20 Montelukast [Singulair] 10 mg PO HS 03/29/19 05/22/20 Vit C/E/Zn/Coppr/Lutein/Zeaxan 1 tab PO BID 03/29/19 05/22/20 [Preservision Areds 2 Softgel] Albuterol Inhaler (Mhu) [Ventolin 1 - 2 puff INHALATION RT-Q6H PRN 04/01/19 05/22/20 Hfa Inhaler] Ascorbic Acid [Vitamin C] 500 mg PO DAILY 04/01/19 05/22/20 Desonide 0.05% Lotion 1 applic TOPICAL BID PRN 04/01/19 05/22/20 Multivitamins, Thera [Multivitamin 1 tab PO DAILY 04/01/19 05/22/20 (formulary)] Previous Rx's Medication Instructions Recorded Omeprazole Magnesium [PriLOSEC] 20 mg PO DAILY 24 Days #24 06/05/20 tablet. Allergies Allergy/AdvReac Type Severity Reaction Status Date / Time Penicillins Allergy Rash/Hives Verified 06/05/20 17:04 propoxyphene HCl Allergy Nausea Verified 06/05/20 17:04 [From Darvon] propoxyphene napsylate Allergy Nausea Verified 06/05/20 17:04 [From Darvocet-N] codeine AdvReac Nausea & Verified 06/05/20 17:04 Vomiting Review of Systems ROS Statement: Those systems with pertinent positive or pertinent negative responses have been documented in the HPI. ROS Other: All systems not noted in ROS Statement are negative. Past Medical History Past Medical History: Asthma, GERD/Reflux, Osteoarthritis (OA), Thyroid Disorder Additional Past Medical History / Comment(s): Hypothyroid, HEART MURMUR, LOW,ROSACEA. Osteopenia. 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 History of Any Multi-Drug Resistant Organisms: None Reported Past Surgical History: Adenoidectomy, Cholecystectomy, Hernia Repair, Orthopedic Surgery, Tonsillectomy Additional Past Surgical History / Comment(s): ovarian cyst; bunionectomies, repair of hiatal hernia. Colonoscopy 2016(was told no more needed) Past Anesthesia/Blood Transfusion Reactions: No Reported Reaction Past Psychological History: No Psychological Hx Reported Smoking Status: Former smoker Past Alcohol Use History: Occasional Past Drug Use History: None Reported - Past Family History Son(s) Additional Family Medical History / Comment(s): from brain tumor Brother(s) Family Medical History: Coronary Artery Disease (CAD), Diabetes Mellitus, Myocardial Infarction ([place]) Additional Family Medical History / Comment(s): Patient has 2 brothers and one has coronary artery disease, first myocardial infarction at age 43 and is currently 77 years of age. Second brother has history of diabetes. Daughter(s) Family Medical History: No Reported History Additional Family Medical History / Comment(s): . Father Family Medical History: Cancer, Coronary Artery Disease (CAD) Additional Family Medical History / Comment(s): Father has history of lung cancer and coronary artery disease. . Mother Family Medical History: Cancer Additional Family Medical History / Comment(s): Mother at age 79 from ovarian cancer. General Exam Limitations: physical limitation Course Vital Signs 06/05/20 06/05/20 17:01 18:25 Temperature 97.8 F 97.3 F L Pulse Rate 73 68 Respiratory 18 18 Rate Blood Pressure 168/95 154/75 O2 Sat by Pulse 96 96 Oximetry Medical Decision Making - Lab Data Result diagrams: 06/05/20 17:24 06/05/20 17:24 Lab Results 06/05/20 06/05/20 06/05/20 Range/Units 17:24 17:24 17:24 WBC 8.1 (3.8-10.6) k/uL RBC 4.39 (3.80-5.40) m/uL Hgb 12.8 (11.4-16.0) gm/dL Hct 39.7 (34.0-46.0) % MCV 90.6 (80.0-100.0) fL MCH 29.1 (25.0-35.0) pg MCHC 32.1 (31.0-37.0) g/dL RDW 13.7 (11.5-15.5) % Plt Count 204 (150-450) k/uL MPV 8.2 Neutrophils % 76 % Lymphocytes % 16 % Monocytes % 4 % Eosinophils % 2 % Basophils % 1 % Neutrophils # 6.1 (1.3-7.7) k/uL Lymphocytes # 1.3 (1.0-4.8) k/uL Monocytes # 0.3 (0-1.0) k/uL Eosinophils # 0.2 (0-0.7) k/uL Basophils # 0.0 (0-0.2) k/uL PT 10.6 (9.0-12.0) sec INR 1.0 (<1.2) APTT 23.8 (22.0-30.0) sec Sodium 135 L (137-145) mmol/L Potassium 4.3 (3.5-5.1) mmol/L Chloride 105 (98-107) mmol/L Carbon Dioxide 21 L (22-30) mmol/L Anion Gap 9 mmol/L BUN 18 H (7-17) mg/dL Creatinine 0.89 (0.52-1.04) mg/dL Est GFR (CKD-EPI)AfAm 71 (>60 ml/min/1.73 sqM) Est GFR (CKD-EPI)NonAf 61 (>60 ml/min/1.73 sqM) Glucose 103 H (74-99) mg/dL Plasma Lactic Acid Jasmeet (0.7-2.0) mmol/L Calcium 9.7 (8.4-10.2) mg/dL Magnesium 1.6 (1.6-2.3) mg/dL Total Bilirubin 0.6 (0.2-1.3) mg/dL AST 26 (14-36) U/L ALT 16 (4-34) U/L Alkaline Phosphatase 71 (38-126) U/L Troponin I (0.000-0.034) ng/mL Total Protein 6.7 (6.3-8.2) g/dL Albumin 4.2 (3.5-5.0) g/dL Lipase 47 (23-300) U/L 06/05/20 06/05/20 Range/Units 17:24 17:24 WBC (3.8-10.6) k/uL RBC (3.80-5.40) m/uL Hgb (11.4-16.0) gm/dL Hct (34.0-46.0) % MCV (80.0-100.0) fL MCH (25.0-35.0) pg MCHC (31.0-37.0) g/dL RDW (11.5-15.5) % Plt Count (150-450) k/uL MPV Neutrophils % % Lymphocytes % % Monocytes % % Eosinophils % % Basophils % % Neutrophils # (1.3-7.7) k/uL Lymphocytes # (1.0-4.8) k/uL Monocytes # (0-1.0) k/uL Eosinophils # (0-0.7) k/uL Basophils # (0-0.2) k/uL PT (9.0-12.0) sec INR (<1.2) APTT (22.0-30.0) sec Sodium (137-145) mmol/L Potassium (3.5-5.1) mmol/L Chloride (98-107) mmol/L Carbon Dioxide (22-30) mmol/L Anion Gap mmol/L BUN (7-17) mg/dL Creatinine (0.52-1.04) mg/dL Est GFR (CKD-EPI)AfAm (>60 ml/min/1.73 sqM) Est GFR (CKD-EPI)NonAf (>60 ml/min/1.73 sqM) Glucose (74-99) mg/dL Plasma Lactic Acid Jasmeet 0.9 (0.7-2.0) mmol/L Calcium (8.4-10.2) mg/dL Magnesium (1.6-2.3) mg/dL Total Bilirubin (0.2-1.3) mg/dL AST (14-36) U/L ALT (4-34) U/L Alkaline Phosphatase (38-126) U/L Troponin I <0.012 (0.000-0.034) ng/mL Total Protein (6.3-8.2) g/dL Albumin (3.5-5.0) g/dL Lipase (23-300) U/L Disposition Clinical Impression: Epigastric pain Disposition: HOME SELF-CARE Condition: Fair Instructions (If sedation given, give patient instructions): Abdominal Pain (ED) Additional Instructions: Today you're diagnosed with gastritis versus peptic ulcer disease. This is when there is inflammation to the inner lining of the stomach or upper duodenum. It is important that you reduce alcohol intake, spicy foods caffeine tobacco use. It is important to follow up with GI doctor for outpatient evaluation management of your symptoms. Seek immediate medical attention if he had worsening symptoms especially if it's associated with diaphoresis. Also to important that you seek medical attention if you have black stools or coffee-ground stools. Prescriptions: Omeprazole Magnesium [PriLOSEC] 20 mg PO DAILY 24 Days #24 tablet.dr Is patient prescribed a controlled substance at d/c from ED?: No Referrals: Ugo Syed MD [Primary Care Provider] - 1-2 days Phill Barrera MD [STAFF PHYSICIAN] - 1-2 days Time of Disposition: 20:21
[2020-06-05 17:37] LABS: Basophils % (A) 1 %; Eosinophils # (A) 0.2 k/uL (0-0.7); Eosinophils % (A) 2 %; HCT 39.7 % (34.0-46.0); HGB 12.8 gm/dL (11.4-16.0); Lymphocytes # (A) 1.3 k/uL (1.0-4.8); Lymphocytes % (A) 16 %; MCH 29.1 pg (25.0-35.0); MCHC 32.1 g/dL (31.0-37.0); MCV 90.6 fL (80.0-100.0); Mean Platelet Volume 8.2; Monocytes # (A) 0.3 k/uL (0-1.0); Monocytes % (A) 4 %; Neutrophils # (A) 6.1 k/uL (1.3-7.7); Neutrophils % (A) 76 %; Platelet Count 204 k/uL (150-450); RBC 4.39 m/uL (3.80-5.40); RDW 13.7 % (11.5-15.5); WBC 8.1 k/uL (3.8-10.6)
[2020-06-05 17:47] LABS: Potassium 4.3 mmol/L (3.5-5.1)
[2020-06-05 17:48] LABS: Albumin 4.2 g/dL (3.5-5.0); Calcium 9.7 mg/dL (8.4-10.2); Magnesium 1.6 mg/dL (1.6-2.3); Total Bilirubin 0.6 mg/dL (0.2-1.3); Total Protein 6.7 g/dL (6.3-8.2)
[2020-06-05 17:49] LABS: Partial Thromboplastin Time 23.8 sec (22.0-30.0); Prothrombin Time 10.6 sec (9.0-12.0)
[2020-06-05 18:26] VITALS: BP 154/75; PULSE 68; TEMP 97.3
[2020-06-05] MEDS ORDERED: MAG HYDROX/AL HYDROX/SIMETH 30 ML, HYOSCYAMINE ELIXIR 10 ML, LIDOCAINE VISCOUS 2% 10 ML PO STA ×3 (18:34)
--- NOTE | 2020-06-05 20:07 | XR ---
EXAMINATION TYPE: XR abdomen acute w cxr DATE OF EXAM: 06/05/2020 COMPARISON: 09/10/2016 HISTORY: Pain TECHNIQUE: Single view of the chest and 2 views of the abdomen are submitted. FINDINGS: Single view of the chest fails demonstrate evidence for acute pulmonary disease. There is no evidence for pneumoperitoneum. The bowel gas pattern is unremarkable as there is air throughout nondilated small and large bowel. No sizeable air fluid levels.No mass effects are seen. No unusual calcifications. IMPRESSION: 1. Unremarkable study.
== END 2020-06-05 20:51 | disposition home or self-care (01) ==
LOC: EC 16:52
DX: R10.13 Epigastric pain (principal); M54.9 Dorsalgia, unspecified; R11.0 Nausea; R10.816 Epigastric abdominal tenderness; I25.10 Atherosclerotic heart disease of native coronary artery without angina pectoris; E03.9 Hypothyroidism, unspecified; J45.909 Unspecified asthma, uncomplicated; K21.9 Gastro-esophageal reflux disease without esophagitis; Z79.890 Hormone replacement therapy; Z79.51 Long term (current) use of inhaled steroids; Z79.899 Other long term (current) drug therapy; Z88.0 Allergy status to penicillin; Z88.5 Allergy status to narcotic agent; Z88.8 Allergy status to other drugs, medicaments and biological substances; Z87.891 Personal history of nicotine dependence
CPT/HCPCS: 36415; 74022; 80053; 83605; 83690; 83735; 84484; 85025; 85610; 85730; 93005; 99284

== ENCOUNTER 2020-12-28 07:08 | Day surgery (SDC) | payer MEDICARE, BC ==
[2020-12-26 11:56] VITALS: BMI 30.6
[~2020-12-28 07:08] MED LIST: ALBUTEROL NEB (CONC) 2.5 MG/0.5 ML INHALATION ONE; ATROPINE SULFATE 0.4 MG/ML 1 ML VIAL IM ONE; LACTATED RINGERS 1,000 ML IV SCH; LIDOCAINE 2% (PF) 20 MG/ML 5 ML VIAL INHALATION ONE; LIDOCAINE VISCOUS 300 MG/15 ML CUP MUCOUS MEM ONE
[2020-12-28] MEDS ORDERED: LIDOCAINE 1% (10MG/ML) FOR IV START INTRADERMA ONE (07:30)
[2020-12-28 07:33] VITALS: TEMP 98
[2020-12-28] MEDS ORDERED: fentaNYL (PF) 50 MCG/ML 2 ML AMP ONE (07:34)
[2020-12-28] MEDS ORDERED: PROPOFOL 10 MG/ML 20 ML VIAL IV ONE (07:34)
[2020-12-28] MEDS ORDERED: KETAMINE 10 MG/ML 20 ML VIAL ONE (07:34)
[2020-12-28] MEDS ORDERED: LIDOCAINE 1% INJ 10MG/ML (20 ML MDV) ONE (07:34)
[2020-12-28] MEDS ORDERED: MIDAZOLAM 2 MG/2 ML VIAL ONE (07:34)
[2020-12-28] MEDS ORDERED: LIDOCAINE 2% INJ 20 MG/ML INTRATRACH ONE (07:47)
[2020-12-28 08:26] VITALS: BP 133/73; PULSE 74; RESP 18
--- NOTE | 2020-12-28 14:09 | PCN ---
PROCEDURE NOTE PROCEDURE: Bronchoscopy, airway examination, therapeutic lavage, BAL right middle lobe. PREOPERATIVE DIAGNOSIS: Acute bronchitis with bronchospasm. POSTOPERATIVE DIAGNOSIS: Acute bronchitis with bronchospasm. INFORMATION SYSTEMS SECURITY ANALYST: Dr. Posada. DESCRIPTION OF PROCEDURE: Anesthesia provided general anesthesia. The patient's procedure took place in room #1 Endoscopy. There was informed consent and universal timeout. After the patient was adequately sedated and being fully monitored, the bronchoscope was inserted through the right nostril. It passed through the right nasopharynx into the oropharynx. The hypopharynx was then evaluated. The hypopharyngeal structures, including anterior commissure, true cords, false cords, arytenoids, piriform sinuses, right and left valleculae and epiglottis, all appeared normal. The glottic opening was topicalized with lidocaine and the bronchoscope was pushed through the glottic opening into the trachea. The trachea was very erythematous and hyperemic. Thin secretions were noted throughout the trachea. There was no mass or tumor. Tracheal carolyn was sharp. The right and left mainstem were topicalized. The right upper lobe and its 3 segments, right middle lobe and its 2 segments, right lower lobe and its 5 segments, left upper lobe proper and its 2 segments, lingula and its 2 segments and left lower lobe and its 4 segments all had similar findings of diffuse significant erythema and hyperemia of the airways. The mucosa was friable. There was vascular prominence. There was no mass or tumor. The mucosa bled easily. The secretions were mostly thin. The bronchoscope was then wedged into the right middle lobe. Formal BAL took place. Thirty mL was recovered. It will be sent to the laboratory for analysis. Afterwards, the bronchoscope was withdrawn. There was no immediate complication. The patient will be recovered. I will speak to the patient's , who brought her, and pass on the results of the procedure. MMODL / IJN: [id number] /
[2020-12-28 21:35] LABS: Appearance,BF Blood Tinged; Nucleated Cells, Body Fluid 163 /uL; RBC, Body Fluid 3770 /uL
[2020-12-28 21:38] LABS: Mononuclear WBC,Body Fluid 15 %; Polynuclear WBC,Body Fluid 85 %; Total Cells Counted,Body Fluid 100
== END 2020-12-28 08:41 | disposition home or self-care (01) ==
LOC: ORWHC2ENDO 07:08
PROVIDERS: ATTEND Internal Medicine Critical Care Medicine
DX: J20.9 Acute bronchitis, unspecified (principal); Z86.16 Personal history of COVID-19; J45.901 Unspecified asthma with (acute) exacerbation; E03.9 Hypothyroidism, unspecified; K21.9 Gastro-esophageal reflux disease without esophagitis; I47.1 Supraventricular tachycardia; Z87.891 Personal history of nicotine dependence; Z80.9 Family history of malignant neoplasm, unspecified; Z82.49 Family history of ischemic heart disease and other diseases of the circulatory system; Z98.890 Other specified postprocedural states; Z79.890 Hormone replacement therapy; Z79.51 Long term (current) use of inhaled steroids; Z79.899 Other long term (current) drug therapy; Z88.5 Allergy status to narcotic agent; Z88.0 Allergy status to penicillin
CPT/HCPCS: 87798 ×3; 87496; 87498; 87529; 88108; 88305; 89050; 87252; 87502; 87634; 87070; 87205; 87116; 87102; 87206; 31624; J2001 ×2; J2250; J3010; J2704

== ENCOUNTER → 2021-08-06 | Outpatient (CLI) | payer MEDICARE, BC ==
[2021-08-06 10:47] VITALS: BP 151/72; PULSE 76; RESP 17; TEMP 98.4
--- NOTE | 2021-08-06 11:38 | P.HPOB ---
History of Present Illness H&P Date: 08/06/21 Chief Complaint: The patient is here for her routine gynecologic exam and ma mmogram. This is an 80-year-old 002 with an LMP of 1987. The patient is without gynecologic complaints and denies any postmenopausal bleeding. She has noticed some left abdominal pain recently and describes it as abdominal pressure. She has been followed with yearly pelvic ultrasounds because of her mother's history of ovarian cancer. She has had multiple pelvic ultrasound which has showed a small amount of endometrial fluid and this has been followed conservatively. Review of Systems The patient has lost 7 pounds over the last year. She denies respiratory, cardiac, or G.I. problems. Past Medical History Past Medical History: Asthma, GERD/Reflux, Osteoarthritis (OA), Thyroid Disorder Additional Past Medical History / Comment(s): HEART MURMUR. ROSACEA. Osteopenia. 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 History of Any Multi-Drug Resistant Organisms: None Reported Past Surgical History: Adenoidectomy, Cholecystectomy, Hernia Repair, Orthopedic Surgery, Tonsillectomy Additional Past Surgical History / Comment(s): ovarian cyst removal, bunionectomies, repair of hiatal hernia. Bronchoscopy. Past Anesthesia/Blood Transfusion Reactions: No Reported Reaction Past Psychological History: No Psychological Hx Reported Smoking Status: Former smoker Past Alcohol Use History: Occasional (2 per week) Additional Past Alcohol Use History / Comment(s): QUIT SMOKING APPROX 1997. SHE WAS A SOCIAL SMOKER . Past Drug Use History: None Reported Additional History: She is and is sexually active. - Past Family History Son(s) Additional Family Medical History / Comment(s): from brain tumor Brother(s) Family Medical History: Cancer, Coronary Artery Disease (CAD), Diabetes Mellitus, Myocardial Infarction ([place]) Additional Family Medical History / Comment(s): Patient has 2 brothers and one has coronary artery disease, first myocardial infarction at age 43 and is currently 77 years of age. Second brother has history of diabetes and lymphoma. Daughter(s) Family Medical History: No Reported History Additional Family Medical History / Comment(s): . Father Family Medical History: Cancer, Coronary Artery Disease (CAD) Additional Family Medical History / Comment(s): Father has history of lung cancer and coronary artery disease. . Mother Family Medical History: Cancer Additional Family Medical History / Comment(s): Mother at age 79 from ovarian cancer. Medications and Allergies Home Medications Medication Instructions Recorded Confirmed Type Levothyroxine Sodium [Synthroid] 100 mcg PO DAILY 03/30/15 12/26/20 History Budesonide-Formot 160-4.5 Mcg 2 puff INHALATION RT-BID 03/29/19 12/26/20 History [Symbicort 160-4.5 Mcg Inhaler] Cholecalciferol [Vitamin D3 (25 5,000 unit PO DAILY 03/29/19 12/26/20 History Mcg = 1000 Iu)] Montelukast [Singulair] 10 mg PO DAILY 03/29/19 12/26/20 History Ascorbic Acid [Vitamin C] 1,000 mg PO DAILY 04/01/19 12/26/20 History Albuterol Sulfate [Ventolin HFA] 2 puff INHALATION RT-Q6H PRN 06/05/20 12/26/20 History dilTIAZem HCL [Diltiazem HCl 24Hr 120 mg PO DAILY 06/05/20 12/26/20 History ER] Calcium Carbonate [Calcium] 1 tab PO DAILY 12/26/20 12/26/20 History Glucosam/Hakan-Msm1/C/Aamir/Bosw 1 each PO DAILY 12/26/20 12/26/20 History [Glucosamine-Chondroitin Tablet] Magnesium Oxide [Mag-Ox] 500 mg PO DAILY 12/26/20 12/26/20 History Pantoprazole [Protonix] 40 mg PO DAILY 12/26/20 12/26/20 History Vit C/E/Zn/Coppr/Lutein/Zeaxan 1 each PO DAILY 12/26/20 12/26/20 History [Preservision Areds 2 Softgel] Allergies Allergy/AdvReac Type Severity Reaction Status Date / Time Penicillins Allergy Rash/Hives Verified 08/06/21 10:35 codeine AdvReac Nausea & Verified 08/06/21 10:35 Vomiting propoxyphene HCl AdvReac Nausea Verified 08/06/21 10:35 [From Darvon] propoxyphene napsylate AdvReac Nausea Verified 08/06/21 10:35 [From Darvocet-N] Exam Vital Signs Temp Pulse Resp BP Pulse Ox 08/06/21 10:45 98.4 F 76 17 151/72 99 Intake and Output 08/05/21 08/06/21 08/06/21 22:59 06:59 14:59 Other: Weight 74.843 kg Height 5 feet 2 inches, weight 165 pounds, BMI 30.2. This is a well-developed well-nourished white female who is alert and oriented times 3 in no acute distress. HEENT: Within normal limits. NECK: Supple without mass or thyromegaly. CHEST AND LUNGS: Clear to auscultation. HEART: Regular rate and rhythm. BREASTS: Are without mass or discharge. AXILLARY EXAM: Negative for adenopathy. BACK: Negative for CVA tenderness. ABDOMEN: Soft, without palpable masses. There is mild left lateral and lower abdominal tenderness without rebound tenderness. She has a large birthmark on the lower right abdomen extending to the side of the right abdomen. This appears unchanged from previous exams. PELVIC EXAM: Normal external genitalia with mild to moderate atrophy. Cervix and vagina appear normal with mild to moderate atrophy. There is no unusual discharge. There is no evidence of prolapse. The uterus is midposition, non gravid size and nontender. There are no palpable adnexal masses. There is mild left adnexal tenderness with bimanual examination. RECTAL EXAM: Rectovaginal exam is negative for mass or tenderness and is negative for occult blood. EXTREMITIES: Nontender. IMPRESSION: 1. 80-year-old menopausal female with mild left abdominal tenderness and left pelvic tenderness on exam today. 2. Recent left abdominal pressure. 3. Family history of ovarian cancer in her mother. 4. History of small endometrial fluid by pelvic ultrasounds which has been followed conservatively. PLAN: 1. Pap smears have been discontinued. 2. Self breast awareness was discussed with the patient. We have also discussed symptoms associated with inflammatory breast cancer. 3. Screening mammogram will be done today. 4. Osteoporosis prevention was discussed. Bone density testing will be done today. 5. Pelvic ultrasound is recommended. This is not only because of her family history of ovarian cancer, but also for the left pelvic and left abdominal tenderness on exam today. The order slip was given to the patient for this. If the pelvic ultrasound does not reveal anything to explain the left abdominal tenderness and pressure, the patient was instructed to follow up with her PCP for possible at additional testing. I also recommended that she try to be regular with her bowel movements since constipation can cause similar symptoms. 6. She has completed her Covid vaccination series and has received 2 boosters as well. 7. She was advised to return in one year for her annual well woman exam and as needed.
--- NOTE | 2021-08-06 12:19 | BD ---
EXAMINATION TYPE: Axial Bone Density DATE OF EXAM: 08/06/2021 COMPARISON: NONE CLINICAL HISTORY: 80 year old Female. ICD-10 CODE: Z78.0 POST MENOPAUSAL SYMPTOMS Height: 62 Weight: 164.1 FRAX RISK QUESTIONS: Alcohol (3 or more units per day): no Family History (Parent hip fracture): no Glucocorticoids (More than 3mos): no (Ex: prednisone, prednisolone, methylprednisolone, dexamethasone, and hydrocortisone). History of Fracture in Adulthood: no Secondary Osteoporosis: 1. Type 1 Diabetes: no 2. Hyperthyroidism: no 3. Menopause before 45: no 4. Malnutrition: no 5. Chronic liver disease: no Rheumatoid Arthritis: no Current Tobacco Use: no RISK FACTORS HISTORY OF: Surgery to Spine/Hip(right/left)/Wrist (right/left): no Family History of Osteoporosis: yes Active: yes Diet low in dairy products/other sources of calcium: no Postmenopausal woman: yes Lost more than 2 inches in height since high school: no MEDICATIONS: Thyroid Medications: thyroid How Lon years Additional History: EXAM MEASUREMENTS: Bone mineral densitometry was performed using the [employer] System. Bone mineral density as measured about the Lumbar spine is: ----- L1-L4(G/cm2): 1.023 T Score Values are as follows: ----- L1: -2.0 ----- L2: -2.0 ----- L3: -0.6 ----- L4: -1.0 ----- L1-L4: -1.3 Bone mineral density has: decreased -6.6 % since study of: 03.30.2019 Bone mineral density about the R hip (g/cm2): 0.831 Bone mineral density about the L hip (g/cm2): 0.848 T Score values are as follows: -----R Neck: -1.5 -----L Neck: -1.4 -----R Total: -0.8 -----L Total: -0.9 Bone mineral density has: increased 2.3 % since study of: 03.30.2019 FRAX%s: The graph provided illustrates a 13.1% chance for a major osteoporotic fx and a 3.3% chance f or the hips probability for fx in 10 years time. IMPRESSION: Osteopenia (T Score between -2.5 and -1). There is slightly increased risk of fracture and the patient may be considered for treatment. Re-Screen 2-5 years. NOTE: T-SCORE=SD OF THE YOUNG ADULT MEAN.
--- NOTE | 2021-08-07 08:14 | MM ---
Reason for Exam: Screening (asymptomatic). Last mammogram was performed 1 year(s) and 2 month(s) ago. Patient History: Menarche at age 11. First Full-Term at age 23. Right ovary removed at age 49. Postmenopausal. Estrogen for 15 years from age 44 until age 59. Progesterone for 15 years from age 44 until age 59. 10/06/2005, Benign Core Biopsy on the left side. 07/28/2002, Benign Stereotactic Core Biopsy on the right side. Maternal aunt had breast cancer. Risk Values: Triny 5 year model risk: 2.2%. NCI Lifetime model risk: 3.1%. Prior Study Comparison: 02/25/2018 Bilateral Screening Mammogram, [facility]. 03/29/2019 Bilateral Screening Mammogram, [facility]. 05/22/2020 Bilateral Screening Mammogram, [facility]. Tissue Density: There are scattered fibroglandular densities. Findings: Analyzed By CAD. Core markers are present bilaterally. No suspicious groups of microcalcifications, spiculated or lobular masses, architectural distortion or other secondary signs of malignancy are mammographically apparent. Overall Assessment: Benign, BI-RAD 2 Management: Screening Mammogram of both breasts in 1 year. A negative mammogram report should not preclude additional follow up of suspicious palpable abnormalities. Patient should continue monthly self breast exam. A clinical breast exam by your physician is recommended on an annual basis and results should be correlated with mammographic findings. Electronically signed and approved by: Kit Morrow D.O. Radiologis
--- NOTE | 2021-08-07 09:11 | P.PN ---
Progress Note - Text Progress Note Date: 08/07/21 OUTPATIENT FOLLOW-UP NOTE TEST(S)/RESULTS: Test results from 08/06/2021 include benign mammogram and bone density testing showing osteopenia. METHOD OF NOTIFICATION: A message with these results was left on the patient's voicemail. PATIENT COMMENTS: DIAGNOSIS: Benign mammogram and osteopenia. DISCUSSION: There were mild changes in the bone density results. Her numbers are so closer to normal than osteoporosis. No prescription medication is recommended at this time. We will plan on repeating bone density test in 2-3 years. PLAN: As above. She was advised to return in one year for her annual well woman exam.
== END | disposition home or self-care (01) ==
LOC: WWCWWP 10:24
PROVIDERS: ATTEND Obstetrics & Gynecology
DX: Z12.31 Encounter for screening mammogram for malignant neoplasm of breast (principal); Z78.0 Asymptomatic menopausal state
CPT/HCPCS: 77063; 77067; 77080

== ENCOUNTER → 2021-10-04 | Outpatient (CLI) | payer MEDICARE, BC ==
--- NOTE | 2021-10-04 15:52 | XR ---
EXAM TYPE: LUMBAR SPINE X RAY SERIES COMPARISON: NONE HISTORY: Pain TECHNIQUE: 4 views are submitted. FINDINGS: Alignment is anatomic. The pedicles are intact. The transverse processes are intact. There is diff use osteopenia with multilevel facet arthropathy and grade 1 anterolisthesis L5 on S1. Vascular calci fications are noted. Surgical clips in the right upper quadrant. IMPRESSION: 1. Multilevel degenerative disc disease and facet arthropathy with grade 1 anterolisthesis L5 on S1
== END | disposition home or self-care (01) ==
LOC: RADXRMAIN 15:29
PROVIDERS: ATTEND Internal Medicine Geriatric Medicine
DX: M47.897 Other spondylosis, lumbosacral region (principal)
CPT/HCPCS: 72100

== ENCOUNTER 2021-10-15 07:57 | Day surgery (SDC) | payer MEDICARE, BC ==
[2021-10-14 09:25] VITALS: BMI 30.6
[~2021-10-15 07:57] MED LIST changes: -ALBUTEROL NEB (CONC) 2.5 MG/0.5 ML INHALATION ONE; -ATROPINE SULFATE 0.4 MG/ML 1 ML VIAL IM ONE; -LIDOCAINE 2% (PF) 20 MG/ML 5 ML VIAL INHALATION ONE; -LIDOCAINE VISCOUS 300 MG/15 ML CUP MUCOUS MEM ONE
[2021-10-15 08:45] VITALS: RESP 16; TEMP 98.1
[2021-10-15] MEDS ORDERED: PROPOFOL 10 MG/ML 20 ML VIAL IV ONE (09:31)
--- NOTE | 2021-10-15 10:00 | P.PCN ---
Date of Procedure: 10/15/21 Procedure(s) Performed: BRIEF HISTORY: Patient is a 80-year-old pleasant white female scheduled for an elective colonoscopy as a part of evaluation of prior history of colon polyps. PROCEDURE PERFORMED: Colonoscopy with biopsy and snare polypectomy and Endo Clip placement PREOPERATIVE DIAGNOSIS: History of colon polyps. IV sedation per Anesthesia. PROCEDURE: After informed consent was obtained, the patient, was brought into the endoscopy unit. IV sedation was administered by Anesthesia under continuous monitoring. Digital rectal examination was normal. Initially the Olympus CF-160 flexible video colonoscope was then inserted in the rectum, gradually advanced into the sigmoid: Further advancement was not possible. The scope was removed and a pediatric colonoscope was then introduced into the rectum and gradually advanced into the cecum without any difficulty. Careful examination was perf ormed as the scope was gradually being withdrawn. Ileocecal valve and the appendiceal orifice were visualized and appeared normal. Prep was excellent. Mucosa of the cecum had a 3 mm polyp that was removed by cold biopsy. The ascending colon there was a 2.5 cm broad-based polyp that was removed by piecemeal snare polypectomy followed by Endo Clip placement. Complete polypectomy was accomplished. Rest of the, ascending colon, transverse colon, descending colon, sigmoid colon, and rectum appeared normal. Scattered sigmoid diverticulosis seen. Retroflexion was performed in the rectum and no lesions were seen. The patient tolerated the procedure well. IMPRESSION: 2.5 cm broad-based ascending colon polyp status post piecemeal snare polypectomy followed by Endo Clip placement and complete polypectomy accomplished 3 mm cecal polyp status post cold biopsy Scattered sigmoid diverticulosis. RECOMMENDATIONS: Findings of this examination were discussed with the patient well as her family.. She was advised to follow with the biopsy results. If the biopsy is adenoma she can have a repeat colonoscopy in 3 years.
[2021-10-15 10:35] VITALS: BP 158/75; PULSE 66
== END 2021-10-15 10:42 | disposition home or self-care (01) ==
LOC: ORWHC2ENDO 07:57
PROVIDERS: ATTEND Internal Medicine Gastroenterology
DX: D12.2 Benign neoplasm of ascending colon (principal); K57.30 Diverticulosis of large intestine without perforation or abscess without bleeding; J45.909 Unspecified asthma, uncomplicated; E07.9 Disorder of thyroid, unspecified; Z88.0 Allergy status to penicillin; Z79.890 Hormone replacement therapy; Z79.899 Other long term (current) drug therapy; Z88.8 Allergy status to other drugs, medicaments and biological substances; Z98.890 Other specified postprocedural states; Z90.89 Acquired absence of other organs; Z86.010 Personal history of colon polyps
CPT/HCPCS: 88305; 45382; 45380; 45385; J2704

== ENCOUNTER → 2021-10-17 | Outpatient (CLI) | payer MEDICARE, BC ==
--- NOTE | 2021-10-17 19:43 | MR ---
EXAMINATION TYPE: MR lumbar spine wo con DATE OF EXAM: 10/17/2021 4:22 PM COMPARISON: Lumbar radiograph 10/04/2021. CLINICAL INDICATION:Female, 80 years old with history of M54.9 DORSALGIA, UNSPECIFIED; TECHNIQUE: Multi planar, multi sequence imaging was performed utilizing: T1-weighted, T2-weighted, a nd turbo inversion recovery imaging of the lumbar spine. IV Contrast: None FINDINGS: Alignment: The lumbar vertebral bodies have preserved heights and alignment. Cord: The conus medullaris and the distal spinal cord appear unremarkable with regards to their signa l intensity and morphology. Bones/Discs: Bone signal is within normal limits. Multilevel degenerative disc disease is noted and most pronounced at the L5-S1. Multilevel disc desiccation is present. L1-L2: Disc bulging without significant spinal canal stenosis. Facet joint arthropathy with mild bila teral neural foraminal stenosis. L2-L3: Disc bulging without significant spinal canal stenosis. Facet joint arthropathy with mild bila teral neural foraminal stenosis. L3-L4: Disc bulging without significant spinal canal stenosis. Facet joint arthropathy with mild bila teral neural foraminal stenosis. L4-L5: Disc bulging without significant spinal canal stenosis. Facet joint arthropathy with mild bila teral neural foraminal stenosis. L5-S1: Disc bulging without significant spinal canal stenosis. Facet joint arthropathy with mild bila teral neural foraminal stenosis. Other findings: Parapelvic renal cysts most pronounced on the left. IMPRESSION: 1. No definitive evidence of disc herniation or significant spinal canal stenosis. 2. Multilevel disc degeneration with associated osteoarthritic changes with multilevel mild neural f oraminal stenosis.
== END | disposition home or self-care (01) ==
LOC: RADMRIMAIN 15:18
PROVIDERS: ATTEND Internal Medicine Geriatric Medicine
DX: M51.36 Other intervertebral disc degeneration, lumbar region (principal); M54.9 Dorsalgia, unspecified
CPT/HCPCS: 72148

== ENCOUNTER → 2022-02-17 | Outpatient (CLI) | payer MEDICARE, BC ==
--- NOTE | 2022-02-17 15:24 | US ---
EXAMINATION TYPE: US venous doppler duplex LE RT DATE OF EXAM: 02/17/2022 3:10 PM COMPARISON: NONE CLINICAL HISTORY: 81-year-old female pain and edema. I82.401 DVT RIGHT LEG. SIDE PERFORMED: Right TECHNIQUE: The lower extremity deep venous system is examined utilizing real time linear array sonog fredi with graded compression, doppler sonography and color-flow sonography. FINDINGS: VESSELS IMAGED: Common Femoral Vein Deep Femoral Vein Greater Saphenous Vein * Femoral Vein Popliteal Vein Small Saphenous Vein * Proximal Calf Veins (* superficial vessels) Right Leg: Positive for DVT Popliteal Vein into the upper calf veins. IMPRESSION: Exam positive for occlusive DVT right lower extremity involving the popliteal vein and visualized upp er calf vein. The cemetery manager called Dr. Syed's office with results.
== END | disposition home or self-care (01) ==
LOC: RADUSWWP 14:48
PROVIDERS: ATTEND Internal Medicine Geriatric Medicine
DX: I82.431 Acute embolism and thrombosis of right popliteal vein (principal)

== ENCOUNTER 2022-08-07 10:55 | Day surgery (SDC) | payer MEDICARE, BC ==
[~2022-08-07 10:55] MED LIST changes: +ATROPINE SULFATE 0.4 MG/ML 1 ML VIAL IM ONE
[2022-08-07] MEDS ORDERED: LACTATED RINGERS 1,000 ML IV SCH (11:18)
[2022-08-07 11:28] VITALS: TEMP 97.7
[2022-08-07 11:35] LABS: Glucose,Whole Blood 83 mg/dL (70-110)
[2022-08-07] MEDS ORDERED: LIDOCAINE 2% INJ 20 MG/ML (2 ML VIAL) ONE (12:00)
[2022-08-07] MEDS ORDERED: PROPOFOL 10 MG/ML 20 ML VIAL IV ONE (12:00)
[2022-08-07] MEDS ORDERED: fentaNYL (PF) 50 MCG/ML 2 ML AMP ONE (12:00)
[2022-08-07] MEDS ORDERED: MIDAZOLAM 2 MG/2 ML VIAL ONE (12:00)
[2022-08-07] MEDS ORDERED: LIDOCAINE 2% INJ 20 MG/ML INTRATRACH ONE (12:12)
[2022-08-07 13:01] VITALS: BP 150/76; PULSE 62; RESP 18
--- NOTE | 2022-08-07 17:13 | PCN ---
PROCEDURE NOTE This is a Pulmonary/Critical Care procedure note. PROCEDURES PERFORMED: Bronchoscopy, airway examination, therapeutic lavage, and bronchoalveolar lavage, right middle lobe. PREOPERATIVE DIAGNOSES: Severe asthma, retained secretions, and chronic infection. POSTOPERATIVE DIAGNOSES: Severe asthma, retained secretions, and chronic infection. Same. ANESTHESIA PROVIDED: General anesthesia, Dr. Pollack. The patient's procedure was done in room #1. There were informed consent and universal timeout. DESCRIPTION OF PROCEDURE: After the patient was adequately sedated and being fully monitored, the bronchoscope was inserted through the right nostril. It passed through the right nasopharynx into the oropharynx. The hypopharynx was identified and topicalized. The hypopharyngeal structures appeared normal including anterior commissure, true cords, false cords, arytenoids, piriform sinuses - right and left, valleculae, and epiglottis. After topicalization, the bronchoscope was pushed through the glottic opening into the trachea. There were thick secretions noted throughout the trachea. The trachea was very inflamed and erythematous. Tracheal carolyn was sharp. The secretions were suctioned. The right and left mainstem were topicalized. The right upper lobe and its 3 segments, the right middle lobe and its 2 segments, the right lower lobe and its 5 segments, the left upper lobe proper and its 2 segments, the lingula and its 2 segments, and the left lower lobe and its 4 segments all had similar findings of severe diffuse mucosal hyperemia and erythema. The mucosa was friable. It bled easily. There were thick secretions noted throughout. There was no dominant mass or tumor. The bronchoscope was then wedged into the right middle lobe. We did a formal BAL. 30 mL of fluid was recovered. The fluid will be sent for analysis including cytology, microbiology, and differential as well as cell count. The patient tolerated the procedure well, and the bronchoscope was withdrawn. There was no immediate complication. MMODL / IJN: [id number] /
[2022-08-12 09:23] LABS: Appearance,BF Cloudy; Nucleated Cells, Body Fluid 660 /uL; RBC, Body Fluid 875 /uL
== END 2022-08-07 13:15 | disposition home or self-care (01) ==
LOC: ORWHC2ENDO 10:55
PROVIDERS: ATTEND Internal Medicine Critical Care Medicine
DX: J45.41 Moderate persistent asthma with (acute) exacerbation (principal); E03.9 Hypothyroidism, unspecified; I47.1 Supraventricular tachycardia; K21.9 Gastro-esophageal reflux disease without esophagitis; Z82.49 Family history of ischemic heart disease and other diseases of the circulatory system; Z86.16 Personal history of COVID-19; Z90.89 Acquired absence of other organs; Z90.49 Acquired absence of other specified parts of digestive tract; Z98.890 Other specified postprocedural states; Z79.899 Other long term (current) drug therapy; Z88.5 Allergy status to narcotic agent; Z88.0 Allergy status to penicillin; Z79.890 Hormone replacement therapy
CPT/HCPCS: 87798 ×3; 87496; 87498; 87529; 88108; 88305; 89050; 87502; 87634; 87070; 87205; 87116; 87102; 87206; 31624; J2001 ×2; J2250; J3010; J2704; 87252

== ENCOUNTER → 2022-08-20 | Outpatient (CLI) | payer MEDICARE, BC ==
[2022-08-20 11:18] VITALS: BP 165/74; PULSE 74; RESP 17; TEMP 97.3
--- NOTE | 2022-08-20 13:04 | P.HPOB ---
History of Present Illness H&P Date: 08/20/22 Chief Complaint: The patient is here for her routine gynecologic exam and ma mmogram. This is an 81-year-old 002 with an LMP of 1987. The patient is sexually active and has been noticing more discomfort secondary to vaginal dryness despite using a lubricant. She is otherwise without complaints and denies any postmenopausal bleeding. Review of Systems The patient's weight has been stable over the last year. She denies respiratory, cardiac, or G.I. problems. Past Medical History Past Medical History: Asthma, Deep Vein Thrombosis (DVT), GERD/Reflux, Osteoarthritis (OA), Skin Disorder, Thyroid Disorder Additional Past Medical History / Comment(s): HEART MURMUR. ROSACEA, controlled. Osteopenia. hx SVT per pt. blood clot behind rt knee. was on blood thinner for 3 months - complete 2021. 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 Small endometrial fluid by ultrasound followed conservatively. History of Any Multi-Drug Resistant Organisms: None Reported Past Surgical History: Adenoidectomy, Cholecystectomy, Hernia Repair, Orthopedic Surgery, Tonsillectomy Additional Past Surgical History / Comment(s): ovarian cyst removal, bunionectomies, repair of hiatal hernia. Bronchoscopy. Past Anesthesia/Blood Transfusion Reactions: No Reported Reaction Past Psychological History: No Psychological Hx Reported Smoking Status: Former smoker, Light tobacco smoker Past Alcohol Use History: Occasional (3 per week.) Additional Past Alcohol Use History / Comment(s): QUIT SMOKING APPROX 1997. SHE WAS A SOCIAL SMOKER . Past Drug Use History: None Reported Additional History: She is and is sexually active. She has 12 great- grandchildren. - Past Family History Son(s) Additional Family Medical History / Comment(s): from brain tumor Brother(s) Family Medical History: Cancer Additional Family Medical History / Comment(s): lymphoma Daughter(s) Family Medical History: No Reported History Additional Family Medical History / Comment(s): . Father Family Medical History: Cancer Additional Family Medical History / Comment(s): lung cancer Mother Family Medical History: Cancer Additional Family Medical History / Comment(s): Cervical cancer. Medications and Allergies Home Medications Medication Instructions Recorded Confirmed Type Levothyroxine Sodium [Synthroid] 100 mcg PO MOTUWETHFRSA 03/30/15 08/20/22 History Cholecalciferol [Vitamin D3 (25 5,000 unit PO DAILY 03/29/19 08/20/22 History Mcg = 1000 Iu)] Montelukast [Singulair] 10 mg PO HS 03/29/19 08/20/22 History Calcium Carbonate [Calcium] 600 mg PO DAILY 12/26/20 08/20/22 History Glucosam/Hakan-Msm1/C/Aamir/Bosw 2 each PO DAILY 12/26/20 08/20/22 History [Glucosamine-Chondroitin Tablet] Pantoprazole [Protonix] 40 mg PO DAILY PRN 12/26/20 08/20/22 History Vit C/E/Zn/Coppr/Lutein/Zeaxan 1 each PO DAILY 12/26/20 08/20/22 History [Preservision Areds 2 Softgel] Budesonide-Formot 160-4.5 Mcg 2 puff INHALATION BID 10/14/21 08/20/22 History [Symbicort 160-4.5 Mcg Inhaler] Fluticasone Propion/Salmeterol 2 puff INHALATION BID PRN 10/14/21 08/20/22 History [Advair Hfa 230-21 Mcg Inhaler] dilTIAZem HCL [Cartia Xt] 120 mg PO DAILY 10/14/21 08/20/22 History Cyanocobalamin (Vitamin B-12) 1 tab PO DAILY 08/20/22 08/20/22 History [Vitamin B-12] Allergies Allergy/AdvReac Type Severity Reaction Status Date / Time Penicillins Allergy Rash/Hives/ Verified 08/20/22 11:12 ithing codeine AdvReac Nausea & Verified 08/20/22 11:12 Vomiting propoxyphene HCl AdvReac Nausea Verified 08/20/22 11:12 [From Darvon] propoxyphene napsylate AdvReac Nausea Verified 08/20/22 11:12 [From Darvocet-N] Exam Vital Signs Temp Pulse Resp BP Pulse Ox 08/20/22 11:15 97.3 F L 74 17 165/74 98 Intake and Output 08/19/22 08/20/22 08/20/22 22:59 06:59 14:59 Other: Weight 73.936 kg Height 5 foot 1 inch, weight 163 pounds, BMI 30.8. Repeat blood pressure 148/72. This is a well-developed well-nourished white female who is alert and oriented times 3 in no acute distress. HEENT: Within normal limits. NECK: Supple without mass or thyromegaly. CHEST AND LUNGS: Clear to auscultation. HEART: Regular rate and rhythm. BREASTS: Are without mass or discharge. AXILLARY EXAM: Negative for adenopathy. BACK: Negative for CVA tenderness. ABDOMEN: Soft, nontender, without palpable masses. There is a large birthmark on the lower right abdomen extending to the side of the right abdomen. The patient states this has not changed over many years. PELVIC EXAM: Normal external genitalia with moderate atrophy. Cervix and vagina appear normal moderate atrophy. There is no unusual discharge. There is no evidence of prolapse. The uterus is midposition, nongravid size and nontender. There are no palpable adnexal masses or tenderness. RECTAL EXAM: There is minimal perianal erythema. The patient denies any symptoms from this Rectovaginal exam is negative for mass or tenderness and is negative for occult blood. EXTREMITIES: Nontender. IMPRESSION: 1. 81-year-old menopausal female with normal gynecologic exam. 2. Mild dyspareunia secondary to vaginal dryness and genital atrophy. 3. Elevated blood pressure. 4. History of osteopenia. PLAN: 1. Pap smears have been discontinued. 2. Self breast awareness was discussed with the patient. We have also discussed symptoms associated with inflammatory breast cancer. 3. Screening mammogram was done today. 4. Trial of Premarin vaginal cream for the vaginal dryness and dyspareunia. One sample tube was given to the patient with instructions. She will insert 1 g into the vagina to 2 times weekly. The electronic prescription will be sent to [facility]. 5. Osteoporosis prevention was discussed. I have stressed the importance of adequate calcium, vitamin D and regular exercise. Recommended amounts of calcium and vitamin D were also discussed. We will plan on repeating the bone density test in 1 year since her last one was on 08/06/2021. 6. We have discussed her elevated blood pressure. She will check her own blood pressure at home on a regular basis since she does have a blood pressure cuff. She will follow-up with Dr. Syed for blood pressure elevations. 7. She was advised to return in one year for her annual well woman exam.
--- NOTE | 2022-08-21 08:33 | MM ---
Reason for Exam: Screening (asymptomatic). Last mammogram was performed 1 year(s) and 1 month(s) ago. Patient History: Menarche at age 11. First Full-Term at age 23. Right ovary removed at age 49. Postmenopausal. Estrogen for 15 years from age 44 until age 59. Progesterone for 15 years from age 44 until age 59. 10/06/2005, Benign Core Biopsy on the left side. 07/28/2002, Benign Stereotactic Core Biopsy on the right side. Maternal aunt had breast cancer. Risk Values: Triny 5 year model risk: 2.1%. NCI Lifetime model risk: 2.8%. Prior Study Comparison: 03/29/2019 Bilateral Screening Mammogram, [facility]. 05/22/2020 Bilateral Screening Mammogram, [facility]. 08/06/2021 Bilateral MG 3D screening mammo w/cad, [facility]. Tissue Density: There are scattered fibroglandular densities. Findings: Analyzed By CAD. There is no suspicious group of microcalcifications or new suspicious mass in either breast. Overall Assessment: Negative, BI-RAD 1 Management: Screening Mammogram of both breasts in [address] [facility] will attempt to contact patient to return for supplemental views and ultrasound if indicated. Patient should continue monthly self-breast exams. A clinical breast exam by your physician is recommended on an annual basis. This exam should not preclude additional follow-up of suspicious palpable abnormalities. Note on Triny scores and lifetime risk: 1. A Triny score greater than 3% is considered moderate risk. If this is the case, consider specialist referral to assess eligibility for a risk reducing agent. 2. If overall lifetime risk for the development of breast cancer is 20% or higher, the patient may qualify for future screening with alternating mammogram and breast MRI. Electronically signed and approved by: Rasheed Bella DO
== END ==
LOC: WWCWWP 10:56
PROVIDERS: ATTEND Obstetrics & Gynecology
DX: N95.1 Menopausal and female climacteric states (principal); N94.10 Unspecified dyspareunia; R03.0 Elevated blood-pressure reading, without diagnosis of hypertension; R01.1 Cardiac murmur, unspecified; M85.80 Other specified disorders of bone density and structure, unspecified site; Z79.01 Long term (current) use of anticoagulants; Z88.0 Allergy status to penicillin; Z88.5 Allergy status to narcotic agent; Z87.39 Personal history of other diseases of the musculoskeletal system and connective tissue; Z88.8 Allergy status to other drugs, medicaments and biological substances; Z87.891 Personal history of nicotine dependence
CPT/HCPCS: 77063; 77067

== ENCOUNTER → 2022-09-11 | Outpatient (CLI) | payer MEDICARE, BC ==
--- NOTE | 2022-09-11 15:41 | US ---
EXAMINATION TYPE: US pelvic complete DATE OF EXAM: 09/11/2022 COMPARISON: US 2020 CLINICAL INDICATION: Female, 81 years old with history of R93.8OTH ABN AND INCONCLUSIVE FINDINGS ON D X IMAGI; Follow up fluid in endometrium TECHNIQUE: Transabdominal sonographic images of the pelvis were acquired. Transvaginal sonographic i mages were medically necessary to better assess the following anatomy: Uterus, endometrium, left ovar y Date of LMP: Postmenopausal EXAM MEASUREMENTS: Uterus: 4.2 x 2.1 x 2.6 cm Endometrial Stripe: 0.2 cm Left Ovary: not seen 1. Uterus: Anteverted, heterogeneous myometrium, multiple myometrial calcifications 2. Endometrium: fluid within uterine cavity measuring up to 3 mm thick 3. Right Ovary: surgically absent 4. Left Ovary: obscured by overlying bowel gas 5. Bilateral Adnexa: wnl 6. Posterior cul-de-sac: wnl IMPRESSION: 1. Fairly similar splitting of the thin endometrial stripe by 3 mm of fluid within the uterine cavity . 2. Right ovary surgically absent. Unable to visualize the left ovary.
== END | disposition home or self-care (01) ==
LOC: RADUSWWP 10:15
PROVIDERS: ATTEND Obstetrics & Gynecology
DX: R93.89 Abnormal findings on diagnostic imaging of other specified body structures (principal); Z90.721 Acquired absence of ovaries, unilateral
CPT/HCPCS: 76830; 76856

== ENCOUNTER → 2023-10-20 | Outpatient (CLI) | payer MEDICARE, BC ==
[2023-10-20 14:11] VITALS: BP 172/67; PULSE 73; RESP 17; TEMP 98.4
--- NOTE | 2023-10-20 15:21 | P.HPOB ---
History of Present Illness H&P Date: 10/20/23 Chief Complaint: The patient is here for her routine gynecologic exam and ma mmogram. This is an 82-year-old -0-0-2 with an LMP of 1987. She states she did not use the Premarin vaginal cream last year because of cost. She does not recall getting a sample of this either. She would be interested in trying some vaginal estrogen for vaginal dryness. She has been infrequently sexually active. She is otherwise without gynecologic complaints and denies any postmenopausal bleeding. Review of Systems She has lost about 6 pounds over the past year. She denies respiratory or GI problems. Cardiac: Occasional tachycardia and sees a doctor for this. Past Medical History Past Medical History: Asthma, Deep Vein Thrombosis (DVT), GERD/Reflux, Osteoarthritis (OA), Skin Disorder, Thyroid Disorder Additional Past Medical History / Comment(s): HEART MURMUR. ROSACEA, controlled. Osteopenia. hx SVT per pt. blood clot behind rt knee. was on blood thinner for 3 months - complete 2021. 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 Small endometrial fluid by ultrasound followed conservatively. History of Any Multi-Drug Resistant Organisms: None Reported Past Surgical History: Adenoidectomy, Cholecystectomy, Hernia Repair, Orthopedic Surgery, Tonsillectomy Additional Past Surgical History / Comment(s): ovarian cyst removal, bunionectomies, repair of hiatal hernia. Bronchoscopy. Past Anesthesia/Blood Transfusion Reactions: No Reported Reaction Past Psychological History: No Psychological Hx Reported Smoking Status: Former smoker, Light tobacco smoker Past Alcohol Use History: Occasional (2-3 drinks per week.) Additional Past Alcohol Use History / Comment(s): QUIT SMOKING APPROX 1997. SHE WAS A SOCIAL SMOKER . Past Drug Use History: None Reported Additional History: She is and is infrequently sexually active. - Past Family History Son(s) Additional Family Medical History / Comment(s): from brain tumor Brother(s) Family Medical History: Cancer Additional Family Medical History / Comment(s): lymphoma Daughter(s) Family Medical History: No Reported History Additional Family Medical History / Comment(s): . Father Family Medical History: Cancer Additional Family Medical History / Comment(s): lung cancer Mother Family Medical History: Cancer Additional Family Medical History / Comment(s): Ovarian cancer. 10/20/23 last year the patient thought it was actually cervical cancer, but her sister has clarified that their mother did have ovarian cancer. Medications and Allergies Home Medications Medication Instructions Recorded Confirmed Type Levothyroxine Sodium [Synthroid] 100 mcg PO MOTUWETHFRSA 03/30/15 10/20/23 History Cholecalciferol [Vitamin D3 (25 5,000 unit PO DAILY 03/29/19 10/20/23 History Mcg = 1000 Iu)] Montelukast [Singulair] 10 mg PO HS 03/29/19 10/20/23 History Calcium Carbonate [Calcium] 600 mg PO DAILY 12/26/20 10/20/23 History Glucosam/Hakan-Msm1/C/Aamir/Bosw 2 each PO DAILY 12/26/20 10/20/23 History [Glucosamine-Chondroitin Tablet] Pantoprazole [Protonix] 40 mg PO DAILY PRN 12/26/20 10/20/23 History Vit C/E/Zn/Coppr/Lutein/Zeaxan 1 each PO DAILY 12/26/20 10/20/23 History [Preservision Areds 2 Softgel] Budesonide-Formot 160-4.5 Mcg 2 puff INHALATION BID 10/14/21 10/20/23 History [Symbicort 160-4.5 Mcg Inhaler] Fluticasone Propion/Salmeterol 2 puff INHALATION BID PRN 10/14/21 10/20/23 History [Advair Hfa 230-21 Mcg Inhaler] dilTIAZem HCL [Cartia Xt] 120 mg PO DAILY 10/14/21 10/20/23 History Estrogens, Conjugated Cream 1 gram VAGINAL DIRECTED #42.5 gm 08/20/22 10/20/23 Rx [Premarin Vaginal Cream] Allergies Allergy/AdvReac Type Severity Reaction Status Date / Time Penicillins Allergy Rash/Hives/ Verified 10/20/23 14:07 ithing codeine AdvReac Nausea & Verified 10/20/23 14:07 Vomiting propoxyphene HCl AdvReac Nausea Verified 10/20/23 14:07 [From Darvon] propoxyphene napsylate AdvReac Nausea Verified 10/20/23 14:07 [From Darvocet-N] Exam Vital Signs Temp Pulse Resp BP Pulse Ox 10/20/23 14:09 98.4 F 73 17 172/67 99 Intake and Output 10/20/23 10/20/23 10/20/23 06:59 14:59 22:59 Other: Weight 71.214 kg Height 5 feet 0 inches, weight 157 pounds, BMI 30.7. This is a well-developed well-nourished white female who is alert and oriented times 3 in no acute distress. HEENT: Within normal limits. NECK: Supple without mass or thyromegaly. CHEST AND LUNGS: Clear to auscultation. HEART: Regular rate and rhythm. BREASTS: Are without mass or discharge. AXILLARY EXAM: Negative for adenopathy. BACK: Negative for CVA tenderness. ABDOMEN: Soft, nontender, without palpable masses. There is a large birthmark on the lateral right abdomen skin. The patient states it is not changed and she has had it since . PELVIC EXAM: Normal external genitalia with mild to moderate atrophy. Cervix and vagina appear normal with mild to moderate atrophy. There is no unusual discharge. There is no evidence of prolapse. The uterus is midposition, nongravid size and nontender. There are no palpable adnexal masses or tenderness. RECTAL EXAM: Rectovaginal exam is negative for mass or tenderness and is negative for occult blood. EXTREMITIES: Nontender. IMPRESSION: 1. 82-year-old menopausal female with normal gynecologic exam. 2. Family history of ovarian cancer in her mother. It should be noted that last year she thought that it was actually cervical cancer, but the patient's sister has confirmed that their mother did have ovarian cancer. 3. History of small endometrial fluid by ultrasound which has been followed conservatively. 4. History of osteopenia. 5. Elevated blood pressure. PLAN: 1. Pap smears have been discontinued. 2. Self breast awareness was discussed with the patient. We have also discussed symptoms associated with inflammatory breast cancer. 3. Screening mammogram will be done today. Osteoporosis prevention was discussed. I have stressed the importance of adequate calcium, vitamin D and regular exercise. Recommended amounts of calcium and vitamin D were also discussed. Bone density testing will be done today. 4. We have discussed a trial of estrogen vaginal cream to see if this helps with vaginal dryness and dyspareunia. 1 sample of Premarin vaginal cream was given to the patient. After the patient left, I have noted that her past history includes a blood clot behind her knee which did require anticoagulation medication for 3 months in the past. After seeing this in her medical history, I called the patient to let her know that I am recommending not using vaginal estrogen or any other form of HRT. I left a message on the patient's voicemail indicating that she should not use the sample cream that was given to her. I will also not be prescribing the medication as we had discussed. 5. We have discussed her elevated blood pressure. I have recommended that she check her own blood pressure at home on a regular basis and follow-up with Dr. Gary for blood pressure elevations. 6. She was advised to return in one year for her annual well woman exam and as needed.
--- NOTE | 2023-10-21 10:44 | MM ---
Reason for Exam: Screening (asymptomatic). Last mammogram was performed 1 year(s) and 2 month(s) ago. Patient History: Menarche at age 11. First Full-Term at age 23. Right ovary removed at age 49. Postmenopausal. Estrogen for 15 years from age 44 until age 59. Progesterone for 15 years from age 44 until age 59. 10/06/2005, Benign Core Biopsy on the left side. 07/28/2002, Benign Stereotactic Core Biopsy on the right side. Maternal aunt had breast cancer. Risk Values: Triny 5 year model risk: 2.0%. NCI Lifetime model risk: 2.5%. Prior Study Comparison: 05/22/2020 Bilateral Screening Mammogram, [facility]. 08/06/2021 Bilateral MG 3D screening mammo w/cad, [facility]. 08/20/2022 Bilateral MG 3D screening mammo w/cad, [facility]. Tissue Density: The breasts are heterogeneously dense, which may obscure small masses. Findings: Analyzed By CAD. There is no suspicious group of microcalcifications or new suspicious mass in either breast. Surgical clips are seen bilaterally. There are benign appearing calcifications. Overall Assessment: Benign, BI-RAD 2 Management: Screening Mammogram of both breasts in 1 year. . Patient should continue monthly self-breast exams. A clinical breast exam by your physician is recommended on an annual basis. This exam should not preclude additional follow-up of suspicious palpable abnormalities. Note on Triny scores and lifetime risk: 1. A Triny score greater than 3% is considered moderate risk. If this is the case, consider specialist referral to assess eligibility for a risk reducing agent. 2. If overall lifetime risk for the development of breast cancer is 20% or higher, the patient may qualify for future screening with alternating mammogram and breast MRI. Electronically signed and approved by: Ugo Perry M.D. Radiologis
--- NOTE | 2023-10-23 16:39 | BD ---
EXAMINATION TYPE: Axial Bone Density DATE OF EXAM: 10/20/2023 CLINICAL HISTORY: 82 years old Female. ICD-10 CODE: z78.0 post menopausal without hrt Height: 60 Weight: 157 FRAX RISK QUESTIONS: Alcohol (3 or more units per day): no Family History (Parent hip fracture): no Glucocorticoids (More than 3mos): no (Ex: prednisone, prednisolone, methylprednisolone, dexamethasone, and hydrocortisone). History of Fracture in Adulthood: no Secondary Osteoporosis: 1. Type 1 Diabetes: no 2. Hyperthyroidism: no 3. Menopause before 45: no 4. Malnutrition: no 5. Chronic liver disease: no Rheumatoid Arthritis: no Current Tobacco Use: no RISK FACTORS HISTORY OF: Surgery to Spine/Hip(right/left)/Wrist (right/left): no MEDICATIONS: Thyroid Medications: synthroid How Lon years EXAM MEASUREMENTS: Bone mineral densitometry was performed using the [employer] System. Bone mineral density as measured about the Lumbar spine is: ----- L1-L4(G/cm2): 1.062 T Score Values are as follows: ----- L1: -1.8 ----- L2: -1.8 ----- L3: -0.4 ----- L4: -0.4 ----- L1-L4: -1.0 Z Score Values are as follows: ----- L1: -0.1 ----- L2: -0.1 ----- L3: 1.3 ----- L4: 1.3 ----- L1-L4: 0.7 Bone mineral density has: increased 3.8 % since study of: 07.17.2021 Bone mineral density about the R hip (g/cm2): 0.849 Bone mineral density about the L hip (g/cm2): 0.830 T Score values are as follows: -----R Neck: -1.8 -----L Neck: -1.6 -----R Total: -1.3 -----L Total: -1.4 Z Score values are as follows: -----R Neck: 0.4 -----L Neck: 0.6 -----R Total: 0.8 -----L Total: 0.6 Bone mineral density has: decreased -6.1 % since study of: 6.1.2021 FRAX%s: The graph provided illustrates a 14.3% chance for a major osteoporotic fx and a 4.1% chance f or the hips probability for fx in 10 years time. IMPRESSION: Osteopenia (T Score between -2.5 and -1). There is slightly increased risk of fracture and the patient may be considered for treatment. Re-Screen 2-5 years. NOTE: T-SCORE=SD OF THE YOUNG ADULT MEAN.
== END ==
LOC: WWCWWP 13:48
PROVIDERS: ATTEND Obstetrics & Gynecology
DX: Z01.419 Encounter for gynecological examination (general) (routine) without abnormal findings (principal); R92.333 Mammographic heterogeneous density, bilateral breasts; M85.80 Other specified disorders of bone density and structure, unspecified site; R03.0 Elevated blood-pressure reading, without diagnosis of hypertension; Z78.0 Asymptomatic menopausal state; Z80.3 Family history of malignant neoplasm of breast; Z80.41 Family history of malignant neoplasm of ovary; Z88.6 Allergy status to analgesic agent; Z88.0 Allergy status to penicillin; Z88.5 Allergy status to narcotic agent; Z87.891 Personal history of nicotine dependence; Z79.899 Other long term (current) drug therapy

== ENCOUNTER → 2023-12-07 | Outpatient (CLI) | payer MEDICARE, BC ==
--- NOTE | 2023-12-07 16:38 | US ---
EXAMINATION TYPE: US pelvis complete transvag DATE OF EXAM: 12/07/2023 COMPARISON: Pelvic ultrasound 09/11/2022, 03/30/2019, 02/25/2018 CLINICAL INDICATION: Female, 82 years old with history of R93.8 ABN FINDINGS ON DX IMAGING; TECHNIQUE: Transvaginal (TV). Transvaginal sonographic images of the pelvis were obtained. FINDINGS: EXAM MEASUREMENTS: Uterus: 4.5 x 2.0 x 3.4 cm Endometrial Stripe: 0.3 cm Right Ovary: Surgically absent Left Ovary: 1.5 x 1.5 x 1.4 cm 1. Uterus: Anteverted wnl 2. Endometrium: Normal thickness measuring up to 3 mm. Simple appearing fluid identified within the endometrial canal. 3. Right Ovary: Surgically absent 4. Left Ovary: wnl 5. Bilateral Adnexa: wnl 6. Posterior cul-de-sac: wnl IMPRESSION: Similar thin endometrial stripe with endometrial canal simple appearing fluid. Cervical stenosis is a gain a consideration. [facility], , 12/07/2023 4:36 PM
--- NOTE | 2023-12-09 16:21 | P.PN ---
Progress Note - Text Progress Note Date: 12/09/23 OUTPATIENT FOLLOW-UP NOTE TEST(S)/RESULTS: Pelvic ultrasound done on 12/07/2023 showed stable findings including a small amount of endometrial fluid with normal endometrial thickness. There were no adnexal masses. METHOD OF NOTIFICATION: The patient was notified by phone on 12/09/2023. PATIENT COMMENTS: DIAGNOSIS: Stable ultrasound findings including small endometrial fluid with normal endometrial thickness and no adnexal masses. DISCUSSION: PLAN: We will repeat the ultrasound in 1 year. She was advised to return in one year for her annual well woman exam.
== END | disposition home or self-care (01) ==
LOC: RADUSWWP 14:38
PROVIDERS: ATTEND Obstetrics & Gynecology
CPT/HCPCS: 76830; 76856

== ENCOUNTER → 2024-07-25 | Outpatient (CLI) | payer MEDICARE, BC ==
[2024-07-25 18:45] LABS: Basophils # (A) 0.06 X 10*3/uL (0.00-0.10); Basophils % (A) 0.9 %; Eosinophils # (A) 0.17 X 10*3/uL (0.04-0.35); Eosinophils % (A) 2.5 %; HCT 40.6 % (37.2-46.3); HGB 12.8 g/dL (12.0-15.0); Lymphocytes # (A) 1.47 X 10*3/uL (0.90-5.00); Lymphocytes % (A) 21.2 %; MCH 29.7 pg (27.0-32.0); MCHC 31.5 g/dL (32.0-37.0); MCV 94.2 FL (80.0-97.0); Mean Platelet Volume 12.7 FL (9.5-12.2); Monocytes # (A) 0.47 X 10*3/uL (0.20-1.00); Monocytes % (A) 6.8 %; NRBC Per 100 WBC 0 X 10*3/uL (0.00-0.01); Neutrophils # (A) 4.72 X 10*3/uL (1.80-7.70); Platelet Count 202 X 10*3/uL (140-440); RBC 4.31 X 10*6/uL (4.10-5.20); RDW 13.9 % (11.5-14.5); WBC 6.93 X 10*3/uL (4.50-10.00)
[2024-07-25 19:37] LABS: ALT 15 U/L (8-44); AST 17 U/L (13-35); Albumin 4.3 g/dL (3.8-4.9); Albumin/Globulin Ratio 1.95 Ratio (1.60-3.17); Alkaline Phosphatase 69 U/L (41-126); Blood Urea Nitrogen 15.5 mg/dL (9.0-27.0); Calcium 9.6 mg/dL (8.7-10.3); Carbon Dioxide 24.9 mmol/L (21.6-31.8); Chloride 104 mmol/L (96-109); Globulin 2.2 g/dL (1.6-3.3); Glucose 101 mg/dL (70-110); Potassium 4.2 mmol/L (3.5-5.5); Sodium 142 mmol/L (135-145); Total Bilirubin 0.5 mg/dL (0.3-1.2); Total Protein 6.5 g/dL (6.2-8.2)
== END | disposition home or self-care (01) ==
LOC: LABWHC1 11:31
PROVIDERS: ATTEND Internal Medicine Critical Care Medicine
DX: N39.0 Urinary tract infection, site not specified (principal); N20.0 Calculus of kidney; R10.9 Unspecified abdominal pain
CPT/HCPCS: 36415; 80053; 85025; 87086

== ENCOUNTER → 2024-07-26 | Outpatient (CLI) | payer MEDICARE, BC ==
--- NOTE | 2024-07-26 12:42 | CT ---
EXAMINATION TYPE: CT abdomen pelvis w con CT DLP: 739.8 mGycm, Automated exposure control for dose reduction was used. DATE OF EXAM: 07/26/2024 12:30 PM COMPARISON: Pelvic ultrasound 12/07/2023, acute abdominal series 06/05/2020 CLINICAL INDICATION:Female, 83 years old with history of R10.12 LEFT UPPER QUADRANT PAIN; LUQ abdomin al pain TECHNIQUE: Standard CT of the abdomen and pelvis following the administration of 100 cc of Isovue 3 00 IV contrast material and oral contrast. Coronal and sagittal reformats were performed. FINDINGS: LOWER CHEST: Lung bases are clear. Mitral annulus calcifications. No pericardial effusion. ABDOMEN LIVER: Unremarkable GALLBLADDER AND BILE DUCTS: Gallbladder is surgically absent with mild intrahepatic and extra hepatic biliary dilatation likely physiologic and a postcholecystectomy change. The common bile duct measure s up to 1.7 cm at the pancreatic head. No evidence of choledocholithiasis. PANCREAS: Mild atrophy without focal lesion. SPLEEN: Unremarkable. ADRENAL GLANDS: Unremarkable. KIDNEYS AND URETERS: No evidence of hydronephrosis or renal calculus. The kidneys enhance symmetrical ly. Left renal sinus cysts . Additional subcentimeter left renal cortical cyst. No follow-up recommen ded. Contrast is demonstrated within both collecting systems on the delayed phase. Retroaortic left r enal vein. PELVIS BLADDER: Unremarkable REPRODUCTIVE: Unremarkable. ABDOMEN & PELVIS STOMACH AND BOWEL: Small hiatal hernia, duodenum is unremarkable. Enteric contrast reaches the cecum. The appendix is not definitively visualized however no significant inflammatory changes within the r ight lower quadrant. Scattered distal colonic diverticula without evidence for acute diverticulitis. No evidence of bowel obstruction. PERITONEUM: No evidence of pneumoperitoneum or free fluid. VASCULATURE: Moderate atherosclerotic calcifications are present throughout the abdominal aorta and i ts branches. No evidence of aortic aneurysm. MUSCULOSKELETAL: No acute osseous abnormalities. Degenerative changes of the pubic symphysis. LYMPH NODES: No evidence for lymphadenopathy. SOFT TISSUE/ABDOMINAL WALL: Tiny fat-containing umbilical hernia. IMPRESSION: 1. No CT evidence for acute abdominal/pelvic process. 2. Colonic diverticulosis without evidence for acute diverticulitis. [facility], , 07/26/2024 12:40 PM
== END | disposition home or self-care (01) ==
LOC: RADCTMAIN 10:26
PROVIDERS: ATTEND Internal Medicine Critical Care Medicine
DX: K57.30 Diverticulosis of large intestine without perforation or abscess without bleeding (principal); R10.12 Left upper quadrant pain
CPT/HCPCS: 74177; Q9967